=== PATIENT | male | born 1975 | race Hispanic/Latino ===

== ENCOUNTER 2017-10-15 06:53 | Inpatient (IN) | payer MEDICARE, OTHER ==
[2017-10-10 11:54] VITALS: BMI 38.0
[2017-10-15] MEDS ORDERED: Lidocaine 1% Inj (20ml) ONE (08:30)
[2017-10-15] MEDS ORDERED: Midazolam 2 MG/2 ML VIAL ONE ×3 (10:37→13:48)
[2017-10-15] MEDS ORDERED: Propofol 10 mg/ml Inj (20 ML) ONE ×2 (10:37→13:49)
[2017-10-15] MEDS ORDERED: Lactated Ringer's 1,000 ML IV ONE ×5 (10:47→16:00)
[2017-10-15] MEDS: Vancomycin 1 gm/D5W 200 ml 1 GM/200 ML BAG IVPB ONE ×2 (10:57→11:26)
[2017-10-15] MEDS ORDERED: HYDROmorphone 0.5 mg/0.5 ml ISec IVP PRN ×2 (12:52→15:07)
--- NOTE | 2017-10-15 12:52 | PCM.SURG1 ---
Surgeon's Initial Post Op Note - Surgeon's Notes Surgeon: Alison Senior Courtroom Clerk: Kunal PGY3 Type of Anesthesia: General Endo Pre-Operative Diagnosis: R leg varicose veins Operative Findings: varicose veins Post-Operative Diagnosis: same Operation Performed: R lower extremity vein ligation and stripping w. micro phlebectomy Specimen/Specimens Removed: veins Estimated Blood Loss: EBL {In ML}: 100 Blood Products Given: N/A Drains Used: No Drains Post-Op Condition: Good Date of Surgery/Procedure: 10/15/17 Time of Surgery/Procedure: 12:52
[2017-10-15] MEDS ORDERED: ceFAZolin IV 1 gm in Dextrose 0 GM/0 ML BAG IVPB ONE (13:50)
[2017-10-15] MEDS ORDERED: Lidocaine 2% w Epi 1:100,000 Inj IJ ONE (13:50)
--- NOTE | 2017-10-15 15:09 | PCM.SURG1 ---
Surgeon's Initial Post Op Note - Surgeon's Notes Surgeon: Alison Basket Braider: Kunal PGY3 Type of Anesthesia: IV Sedation, Local Pre-Operative Diagnosis: Post op wound bleed Operative Findings: Blood clots, bleeding saphenous vein Post-Operative Diagnosis: same Operation Performed: wound exploration w. ligation of bleeding saphenous Specimen/Specimens Removed: none Estimated Blood Loss: EBL {In ML}: 150 Blood Products Given: N/A Drains Used: No Drains Post-Op Condition: Good Date of Surgery/Procedure: 10/15/17 Time of Surgery/Procedure: 15:08
[2017-10-15] MEDS ORDERED: Acetaminophen-Codeine 300/30 mg Tab PO PRN (15:12)
[2017-10-15] MEDS ORDERED: Lactated Ringer's 500 ML IV ONE (15:13)
[2017-10-15 15:42] LABS: HEMATOCRIT 37.7 % (35.0-51.0); MEAN CORPUSCULAR HEMOGLOBIN 29.8 pg (27.0-31.0); MEAN PLATELET VOLUME 11.4 fL (7.2-11.7); RED CELL DISTRIBUTION WIDTH 13.7 % (11.5-14.5)
[2017-10-15 15:59] LABS: WHITE BLOOD COUNT 15.3 K/uL (4.8-10.8)
--- NOTE | 2017-10-15 18:38 | OP ---
PROCEDURE DATE: 10/15/2017 PREOPERATIVE DIAGNOSIS: Varicose veins and inflammation, right leg. PROCEDURE CARRIED OUT: Stripping and ligation of greater saphenous vein and microphlebectomy, right leg. SURGEON: Sánchez Rosas Jr., MD ACCELERATOR SYSTEMS DIRECTOR: None. ANESTHESIOLOGIST: . INDICATION: The patient is a middle-aged man with a history of emotional disorders, presents with large varices in right leg. The saphenofemoral incompetence is determined out of test. OPERATIVE FINDINGS: The saphenous vein was removed from the ankle to the groin. Numerous tributaries were marked on the skin and ligated and divided. Blood loss for the procedure was 50 mL. Wounds were closed with subcuticular closure and Steri-Strips, except from the groin. The patient tolerated the procedure well. Operation carried out was stripping and ligation of varicose veins of right leg and excision of greater saphenous vein with microphlebectomy. Sánchez Rosas Jr., MD
[2017-10-15] MEDS: Lactated Ringer's 1,000 ML IV SCH ×2 (20:00→21:24)
[2017-10-15] MEDS ORDERED: Divalproex 500 mg ER Tab PO SCH (22:00)
--- NOTE | 2017-10-15 22:14 | OP ---
PROCEDURE DATE: 10/15/2017 PREOPERATIVE DIAGNOSIS: Wound bleeding. POSTOPERATIVE DIAGNOSIS: Wound bleeding. PROCEDURE: Reexploration of groin wound status post vein ligation and stripping. SURGEON: Sánchez Rosas Jr., MD ENTRY LEVEL PARALEGAL: Dr. Syed. ANESTHESIOLOGIST: Mr. Dennis Lewis. INDICATIONS: The patient is a middle aged man, who today in the recovery room after vein stripping from the leg had bleeding from his groin to the extent that the bleeding and the amount of blood loss, I felt the patient should be reexplored. Initially, it appeared that the saphenous vein remnant had evulsed from the femoral vein, but this was not the situation; instead, it appeared that this was a situation where there was some loose tie on the saphenous vein or perhaps some bleeding behind it from another branch. This was suture ligated. The wound was inspected for a total of 45 minutes and then attempted to evaluate this, and there were no additional bleeding sites seen apart from this which was controlled with the use of suture ligation. We then irrigated the wound constantly with peroxide to reassure that there was no bleeding, and then we closed the wound again. Blood loss from procedure itself was 150 mL, but there was at least 500 mL blood loss prior to this. Sánchez Rosas Jr., MD
[2017-10-16 01:43] VITALS: RESP 20
[2017-10-16] MEDS: Lactated Ringer's 1,000 ML IV SCH (02:12)
[2017-10-16 09:08] LABS: MEAN CELL VOLUME 92.2 fL (80.0-94.0); MEAN CORPUSCULAR HEMOGLOBIN 30.6 pg (27.0-31.0); MEAN CORPUSCULAR HGB CONC 33.2 g/dL (33.0-37.0); MEAN PLATELET VOLUME 11.1 fL (7.2-11.7); RED CELL DISTRIBUTION WIDTH 13.5 % (11.5-14.5); WHITE BLOOD COUNT 9.9 K/uL (4.8-10.8)
[2017-10-16] MEDS ORDERED: Levothyroxine 150 MCG TAB PO SCH (10:00)
[2017-10-16] MEDS ORDERED: buPROPion 150 mg/24 Hours XL Tab PO SCH (10:00)
[2017-10-16 11:41] VITALS: O2SAT 96
--- NOTE | 2017-10-16 16:27 | CP.PCM.DIS ---
Provider - Provider Date of Admission: 10/15/17 15:09 Attending physician: Sánchez Rosas Jr, MD Time Spent in preparation of Discharge (in minutes): 20 Diagnosis - Discharge Diagnosis (1) S/P vein stripping Status: Resolved Hospital Course - Lab Results Lab Results: Most Recent Lab Values WBC 9.9 K/uL (4.8-10.8) 10/16/17 08:57 RBC 4.02 Mil/uL (4.40-5.90) L 10/16/17 08:57 Hgb 12.3 g/dL (12.0-18.0) 10/16/17 08:57 Hct 37.0 % (35.0-51.0) 10/16/17 08:57 MCV 92.2 fL (80.0-94.0) 10/16/17 08:57 MCH 30.6 pg (27.0-31.0) 10/16/17 08:57 MCHC 33.2 g/dL (33.0-37.0) 10/16/17 08:57 RDW 13.5 % (11.5-14.5) 10/16/17 08:57 Plt Count 136 K/uL (130-400) 10/16/17 08:57 MPV 11.1 fL (7.2-11.7) 10/16/17 08:57 Differential Comment 10/15/17 15:36 - Hospital Course Hospital Course: 42M presented to [facility] for vein stripping procedure. Had issues with bleeding post op so he was kept overnight for observation. He was able to be DC on POD#1. Discharge Exam - Head Exam Head Exam: ATRAUMATIC, NORMOCEPHALIC - Eye Exam Eye Exam: EOMI. absent: Scleral icterus - Respiratory Exam Respiratory Exam: NORMAL BREATHING PATTERN. absent: Respiratory Distress - GI/Abdominal Exam GI & Abdominal Exam: Soft. absent: Distended, Tenderness - Extremities Exam Additional comments: RLE dressing intact, bruising in thigh noted, normal. - Neurological Exam Neurological exam: Alert, Oriented x3 - Psychiatric Exam Psychiatric exam: Normal Affect, Normal Mood - Skin Skin Exam: Dry, Warm Discharge Plan - Follow Up Plan Condition: GOOD Disposition: HOME/ ROUTINE Instructions: Vein Stripping (DC) Additional Instructions: Walk for 5 minutes every 2 hours Call for pain uncontrolled by meds or fever more than 101 Follow up next week with Dr. Rosas Keep dressing on as long as possible, replace with bennett wrap once it is too loose. Regular Diet Ok to shower, keep dressing dry.
[2017-10-16 17:35] VITALS: BP 127/73; PULSE 98; TEMP 98.2
== END 2017-10-16 16:49 | disposition home or self-care (01) | DRG 263 ==
LOC: C.SDS 06:53 → C.9S 15:09 → C.6T 19:31
PROVIDERS: ADMIT Surgery Vascular Surgery; ATTEND Surgery Vascular Surgery
PROC: 06LP0ZZ Occlusion of Right Saphenous Vein, Open Approach (ICD-10-PCS; 2017-10-15)
PROC: 06DP0ZZ Extraction of Right Saphenous Vein, Open Approach (ICD-10-PCS; principal; 2017-10-15 09:00)
DX: I83.11 Varicose veins of right lower extremity with inflammation (principal); M96.830 Postprocedural hemorrhage of a musculoskeletal structure following a musculoskeletal system procedure; Y83.8 Other surgical procedures as the cause of abnormal reaction of the patient, or of later complication, without mention of misadventure at the time of the procedure; Y92.238 Other place in hospital as the place of occurrence of the external cause

== ENCOUNTER 2018-03-08 03:06 | Emergency (ER) | payer MEDICARE, OTHER ==
[2018-03-08 03:07] VITALS: BMI 38.0
[2018-03-08 03:22] VITALS: TEMP 98.4
[2018-03-08 04:14] LABS: SQUAMOUS EPITHIAL < 1 /hpf (0-5); URINE BILIRUBIN NEGATIVE (NEGATIVE); URINE BLOOD NEGATIVE (NEGATIVE); URINE CLARITY Clear (Clear); URINE COLOR Yellow (YELLOW); URINE GLUCOSE (UA) NORMAL (Normal); URINE LEUKOCYTE ESTERASE NEG Leu/uL (Negative); URINE PROTEIN NEGATIVE (NEGATIVE); URINE UROBILINOGEN NORMAL mg/dL (0.2-1.0)
[2018-03-08 04:14] LABS: HEMOGLOBIN 13.9 g/dL (12.0-18.0); WHITE BLOOD COUNT 8.6 K/uL (4.8-10.8)
[2018-03-08 04:20] LABS: BASO # 0.1 K/uL (0.0-0.2); BASO % 1.2 % (0.0-2.0); EOS # 0.3 K/uL (0.0-0.7); EOS % 3.5 % (0.0-4.0); LYMPH # 2.7 K/uL (1.0-4.3); LYMPH % 31.6 % (20.0-40.0); MEAN CELL VOLUME 90.3 fL (80.0-94.0); MEAN CORPUSCULAR HEMOGLOBIN 30.2 pg (27.0-31.0); MEAN CORPUSCULAR HGB CONC 33.4 g/dL (33.0-37.0); MEAN PLATELET VOLUME 10.9 fL (7.2-11.7); MONO # 0.8 K/uL (0.0-0.8); MONO % 9.7 % (0.0-10.0); NEUT # 4.6 K/uL (1.8-7.0); NRBC % 0.3 % (0.0-2.0); RBC 4.62 Mil/uL (4.40-5.90); RED CELL DISTRIBUTION WIDTH 14.5 % (11.5-14.5)
[2018-03-08 04:28] LABS: BARBITURATES, UR NEGATIVE (NEGATIVE); BENZODIAZEPINES, UR NEGATIVE (NEGATIVE); OPIATES, UR NEGATIVE (NEGATIVE); PHENCYCLIDINE, UR NEGATIVE (NEGATIVE)
[2018-03-08 04:29] LABS: ALB/GLOB RATIO 1.3 (1.0-2.1); ALT/SGPT 28 U/L (21-72); AST/SGOT 22 U/L (17-59); BLOOD UREA NITROGEN 20 mg/dL (9-20); CALCIUM 9.2 mg/dl (8.6-10.4); GFR AFRICAN-AMERICAN > 60; GFR NON-AFRICAN AMERICAN > 60
--- NOTE | 2018-03-08 04:53 | C.PDOC ---
History Of Present Illness 42 year old male presents to the ER with a complaint of feeling increasingly more paranoid recently. Patient has a Hx of paranoid schizophrenia, he has been on medications for 6 years and recently saw his psychiatrist, Dr. Sanchez, at [facility] who would not adjust his medications. Patient states he believes his symptoms will worsen if he does not stay. Denies suicidal ideation or homicidal ideation. Time Seen by Provider: 03/08/18 03:07 Chief Complaint (Nursing): Psychiatric Evaluation History Per: Patient History/Exam Limitations: no limitations Onset/Duration Of Symptoms: Days Current Symptoms Are (Timing): Still Present Suicide/Self Injury Attempted (Context): None Modifying Factor(s): None Associated Symptoms: Paranoia Involuntary Hold By: None Recent travel outside of the [place]: No Past Medical History Reviewed: Historical Data, Nursing Documentation, Vital Signs Vital Signs: Last Vital Signs Temp 98.4 F 03/08/18 03:18 Pulse 78 03/08/18 05:06 Resp 18 03/08/18 05:06 BP 135/72 03/08/18 05:06 Pulse Ox 95 03/08/18 05:06 - Medical History PMH: Anxiety, Bipolar Disorder, Depression, HTN, Hypothyroidism, Paranoia, Schizophrenia - [facility] Procedures EXTRACTION OF RIGHT GREATER SAPHENOUS VEIN, OPEN APPROACH (10/15/17) OCCLUSION OF RIGHT GREATER SAPHENOUS VEIN, OPEN APPROACH (10/15/17) Family History: States: Unknown Family Hx - Social History Hx Tobacco Use: No Hx Alcohol Use: No Hx Substance Use: No - Immunization History Hx Tetanus Toxoid Vaccination: No Hx Influenza Vaccination: No Hx Pneumococcal Vaccination: No Review Of Systems Except As Marked, All Systems Reviewed And Found Negative. Psych: Positive for: Other (Paranoia) Physical Exam - Physical Exam Appears: Non-toxic, No Acute Distress, Other (Calm, cooperative, bizarre affect) Skin: Normal Color, Warm, Dry Head: Atraumatic, Normacephalic Eye(s): bilateral: Normal Inspection Oral Mucosa: Moist Chest: Symmetrical, No Tenderness Cardiovascular: Rhythm Regular Respiratory: Normal Breath Sounds, No Rales, No Rhonchi, No Wheezing Gastrointestinal/Abdominal: Soft, No Tenderness Neurological/Psych: Oriented x3, Normal Speech ED Course And Treatment - Laboratory Results Result Diagrams: 03/08/18 04:05 03/08/18 04:05 O2 Sat by Pulse Oximetry: 98 (Room air) Pulse Ox Interpretation: Normal Progress Note: Blood work, UA, UDS ordered and reviewed. 4:50am - Patient seen by crisis counselor Gisselle, who discussed patient with correction officer supervisor psyciatrist Dr. Inman. Patient does not meet admission criteria, and has been cleared for discharge from psychiatric standpoint. Disposition Counseled Patient/Family Regarding: Studies Performed, Diagnosis, Need For Followup - Disposition Referrals: [place] [facility] [Outside] Disposition: HOME/ ROUTINE Disposition Time: 05:00 Condition: STABLE Additional Instructions: FOLLOW UP WITH YOUR PSYCHIATRIST WITHIN 1 WEEK RETURN TO ER IF SYMPTOMS WORSEN Forms: [facility] (Honduran), General Discharge Instructions Print Language: LATVIAN - POA Present On Arrival: None - Clinical Impression Clinical Impression: Paranoid schizophrenia - Scribe Statement The provider has reviewed the documentation as recorded by the Scribe Ramos Diggs All medical record entries made by the Scribe were at my direction and personally dictated by me. I have reviewed the chart and agree that the record accurately reflects my personal performance of the history, physical exam, medical decision making, and the department course for this patient. I have also personally directed, reviewed, and agree with the discharge instructions and disposition.
[2018-03-08 05:08] VITALS: BP 135/72; PULSE 78; RESP 18
[2018-03-08 05:17] VITALS: O2SAT 98
== END 2018-03-08 05:08 | disposition home or self-care (01) ==
LOC: C.ER 03:06
DX: F20.0 Paranoid schizophrenia (principal)
CPT/HCPCS: 80053; 81001; 85025; 99284; G0480

== ENCOUNTER 2018-04-14 12:33 | Emergency (ER) | payer MEDICARE, OTHER ==
[2018-04-14 12:34] VITALS: BMI 38.0
[2018-04-14 12:43] VITALS: RESP 18
--- NOTE | 2018-04-14 13:01 | C.PDOC ---
History Of Present Illness 42yo male with history of bipolar disorder, presents to ED for evaluation of "hot and cold spells" for the past 3 days. This has been making him and states he is having difficulty sleeping at night. He reports his medication was changed from risperidal to geodon last week. He also states he has been receiving testosterone injections by his urologist due to decreased sexual drive ; he reports the dosage was recently decreased. He denies any fever,sob, rash, pain, URI symptoms, dyruia, or hematuira. Denies chest pain or abdominal pain. He also denies any suicidal or homicidal ideation, denies any hallucinations as well. . PMD: Eyad Matute Time Seen by Provider: 04/14/18 12:48 Chief Complaint (Nursing): Medical Clearance History Per: Patient History/Exam Limitations: no limitations Onset/Duration Of Symptoms: Days (3) Current Symptoms Are (Timing): Still Present Additional History Per: Patient Past Medical History Reviewed: Historical Data, Nursing Documentation, Vital Signs Vital Signs: Last Vital Signs Temp 99.2 F 04/14/18 14:58 Pulse 70 04/14/18 14:58 Resp 18 04/14/18 14:58 BP 122/75 04/14/18 14:58 Pulse Ox 96 04/14/18 14:58 - Medical History PMH: Anxiety, Bipolar Disorder, Depression, HTN, Hypothyroidism, Paranoia, Schizophrenia Denies: Diabetes, Hepatitis, HIV, Chronic Kidney Disease, Seizures Surgical History: No Surg Hx - [facility] Procedures EXTRACTION OF RIGHT GREATER SAPHENOUS VEIN, OPEN APPROACH (10/15/17) OCCLUSION OF RIGHT GREATER SAPHENOUS VEIN, OPEN APPROACH (10/15/17) Family History: States: No Known Family Hx, Unknown Family Hx - Social History Hx Tobacco Use: No Hx Alcohol Use: No Hx Substance Use: No - Immunization History Hx Tetanus Toxoid Vaccination: No Hx Influenza Vaccination: No Hx Pneumococcal Vaccination: No Review Of Systems Except As Marked, All Systems Reviewed And Found Negative. Constitutional: Negative for: Fever, Chills ENT: Negative for: Nose Congestion, Throat Pain Respiratory: Negative for: Cough Genitourinary: Negative for: Dysuria, Hematuria Psych: Positive for: Anxiety. Negative for: Suicidal ideation, Other ( hallucinations) Physical Exam - Physical Exam Appears: Non-toxic, No Acute Distress, Other (anxious) Skin: Normal Color, Warm, Dry Head: Atraumatic, Normacephalic Eye(s): bilateral: Normal Inspection, EOMI Nose: Normal Oral Mucosa: Moist Neck: Normal ROM, Supple Chest: Symmetrical Cardiovascular: Rhythm Regular Respiratory: Normal Breath Sounds, No Wheezing Gastrointestinal/Abdominal: Normal Exam, Soft, No Tenderness Extremity: Normal ROM, No Deformity Neurological/Psych: Oriented x3, Normal Speech, Normal Motor, Normal Sensation ED Course And Treatment - Laboratory Results Result Diagrams: 04/14/18 13:31 04/14/18 13:31 O2 Sat by Pulse Oximetry: 95 (RA) Pulse Ox Interpretation: Normal Progress Note: Labs ordered. Crisis evaluation requested as well. Pt was seen and evaluated by crisis work marcela who notes pt is cleared to be discharged and can f/u outpt with appt on Sunday. Discussed with pt lab results and given copies to show PMD/psychiatrist. Instructed to return to ER if symptoms persist or worsen. Case discussed with Dr Roberts, agreed upon plan and discharge. Disposition - Disposition Disposition: HOME/ ROUTINE Disposition Time: 14:41 Condition: STABLE Additional Instructions: Follow up with your psychiatrist on Sunday for further evaluation. Inform them that your depakote level is < 10 and lithium is 0.3. Return to the emergency department at any time if symptoms persist or worsen. Instructions: Bipolar Disorder (DC) Forms: [facility] (Equatorial [place]inean) - Clinical Impression Clinical Impression: Anxiety, Bipolar 1 disorder - PA / DURABILITY TECHNICIAN / Resident Statement MD/DO has reviewed & agrees with the documentation as recorded. - Scribe Statement The provider has reviewed the documentation as recorded by the Scribe (Marla Venegas) Provider Attestation: All medical record entries made by the Scribe were at my direction and personally dictated by me. I have reviewed the chart and agree that the record accurately reflects my personal performance of the history, physical exam, medical decision making, and the department course for this patient. I have also personally directed, reviewed, and agree with the discharge instructions and disposition.
[2018-04-14 13:38] LABS: BASO # 0.1 K/uL (0.0-0.2); BASO % 0.8 % (0.0-2.0); EOS # 0.1 K/uL (0.0-0.7); EOS % 1.3 % (0.0-4.0); HEMOGLOBIN 15.6 g/dL (12.0-18.0); LYMPH # 2.1 K/uL (1.0-4.3); LYMPH % 21.6 % (20.0-40.0); MEAN CELL VOLUME 90.2 fL (80.0-94.0); MEAN CORPUSCULAR HEMOGLOBIN 30.4 pg (27.0-31.0); MEAN CORPUSCULAR HGB CONC 33.7 g/dL (33.0-37.0); MEAN PLATELET VOLUME 10.9 fL (7.2-11.7); MONO # 0.5 K/uL (0.0-0.8); MONO % 5.4 % (0.0-10.0); NEUT % 70.9 % (50.0-75.0); NRBC % 0.2 % (0.0-2.0); RBC 5.13 Mil/uL (4.40-5.90); RED CELL DISTRIBUTION WIDTH 13.8 % (11.5-14.5); WHITE BLOOD COUNT 9.9 K/uL (4.8-10.8)
[2018-04-14 13:39] LABS: URINE BILIRUBIN NEGATIVE (NEGATIVE); URINE BLOOD NEGATIVE (NEGATIVE); URINE CLARITY Clear (Clear); URINE COLOR Straw (YELLOW); URINE GLUCOSE (UA) NORMAL (Normal); URINE LEUKOCYTE ESTERASE NEG Leu/uL (Negative); URINE PROTEIN NEGATIVE (NEGATIVE); URINE UROBILINOGEN NORMAL mg/dL (0.2-1.0)
[2018-04-14 13:53] LABS: ALB/GLOB RATIO 1.4 (1.0-2.1); ALBUMIN 4.6 g/dL (3.5-5.0); ALT/SGPT 44 U/L (21-72); AST/SGOT 30 U/L (17-59); BLOOD UREA NITROGEN 14 mg/dL (9-20); CALCIUM 9.7 mg/dl (8.6-10.4); GFR AFRICAN-AMERICAN > 60; GFR NON-AFRICAN AMERICAN > 60
[2018-04-14 13:57] LABS: VALPROIC ACID < 10.0 ug/mL (50.0-100.0)
[2018-04-14 14:05] LABS: BARBITURATES, UR NEGATIVE (NEGATIVE); BENZODIAZEPINES, UR NEGATIVE (NEGATIVE); OPIATES, UR NEGATIVE (NEGATIVE); PHENCYCLIDINE, UR NEGATIVE (NEGATIVE)
[2018-04-14 14:25] LABS: TESTOSTERONE 598 ng/mL
[2018-04-14 15:14] VITALS: BP 122/75; PULSE 70; TEMP 99.2
[2018-04-14 22:02] VITALS: O2SAT 95
== END 2018-04-14 14:59 | disposition home or self-care (01) ==
LOC: C.ER 12:33
DX: F31.9 Bipolar disorder, unspecified (principal); F41.9 Anxiety disorder, unspecified; F20.9 Schizophrenia, unspecified; I10 Essential (primary) hypertension; E03.9 Hypothyroidism, unspecified
CPT/HCPCS: 80053; 80164; 80178; 81001; 84403; 84443; 85025; 99283; G0480

== ENCOUNTER 2018-04-25 14:53 | Inpatient (IN) | payer MEDICARE, MEDICAID ==
[2018-04-25 15:14] VITALS: BMI 37.3
--- NOTE | 2018-04-25 15:45 | C.PDOC ---
History Of Present Illness 42 y/o male presents to ED with c/o insomnia for 3 weeks, seen by psychiatrist and psychologist. Patient was prescribed Restoril and states he stopped medication secondary to becoming suicidal when taking it. Patient states he has taken Benadryl with no relief and denies any other physical complaints at this time. Time Seen by Provider: 04/25/18 15:34 Chief Complaint (Nursing): Medical Clearance History Per: Patient History/Exam Limitations: no limitations Onset/Duration Of Symptoms: Days Current Symptoms Are (Timing): Still Present Past Medical History Reviewed: Historical Data, Nursing Documentation, Vital Signs Vital Signs: Last Vital Signs Temp 98.7 F 04/25/18 16:37 Pulse 85 04/25/18 16:37 Resp 16 04/25/18 16:37 BP 131/84 04/25/18 16:37 Pulse Ox 97 04/25/18 18:23 - Medical History PMH: Anxiety, Bipolar Disorder, Depression, HTN, Hypothyroidism, Paranoia, Schizophrenia Surgical History: No Surg Hx - [facility] Procedures EXTRACTION OF RIGHT GREATER SAPHENOUS VEIN, OPEN APPROACH (10/15/17) OCCLUSION OF RIGHT GREATER SAPHENOUS VEIN, OPEN APPROACH (10/15/17) Family History: States: No Known Family Hx - Social History Hx Tobacco Use: No Hx Alcohol Use: No Hx Substance Use: No - Immunization History Hx Tetanus Toxoid Vaccination: No Hx Influenza Vaccination: No Hx Pneumococcal Vaccination: No Review Of Systems Constitutional: Negative for: Fever, Chills Cardiovascular: Negative for: Chest Pain Respiratory: Negative for: Shortness of Breath Gastrointestinal: Negative for: Nausea, Vomiting Skin: Negative for: Rash Psych: Negative for: Anxiety, Suicidal ideation, Withdrawal Physical Exam - Physical Exam Appears: Non-toxic, No Acute Distress, Other (Morbidly obese, Bizarre effect) Skin: Warm, Dry, No Rash Head: Atraumatic, Normacephalic Eye(s): bilateral: Normal Inspection Oral Mucosa: Moist Neck: Normal ROM, Supple Cardiovascular: Rhythm Regular Respiratory: Normal Breath Sounds, No Rales, No Rhonchi, No Wheezing Gastrointestinal/Abdominal: Soft, No Tenderness, No Guarding, No Rebound Neurological/Psych: Oriented x3, Normal Speech, Normal Cognition ED Course And Treatment - Laboratory Results Result Diagrams: 04/25/18 18:19 04/25/18 18:19 Lab Interpretation: Normal (ua neg) O2 Sat by Pulse Oximetry: 97 (RA) Pulse Ox Interpretation: Normal Progress Note: 1644: extensive d/w Crisis workers and arranging visits for this pt. pt unsatisfied that his next appt set for 04/29. Pt wants to be inpatient for insomnia. Denies SI/HI. d/w Crisis to reccomend psych eval and will consider for ADM Reevaluation Time: 19:13 Reassessment Condition: Improved - Physician Consult Information Outcome Of Conversation: 1899: d/w Crisis, ok to admit to Psych Medical Decision Making Medical Decision Making: insomnia x 4 weeks, no SI/HI recently seen by his psychiatrist and psychologist Arranged to have pt call for sooner appt as he desires. no new psych meds Rx'd here. 1699: pending workup for inpt eval 1899: adm for paranoid schizophrenia Disposition Doctor Will See Patient In The: Hospital Counseled Patient/Family Regarding: Studies Performed, Diagnosis - Disposition Referrals: [facility] [Outside] [facility] [Outside] [facility] [Outside] Eyad Matute MD [Staff Provider] - Disposition: HOME/ ROUTINE Disposition Time: 19:14 Condition: GOOD Additional Instructions: call your psychiatrist to make sooner appointment with his office. Continue same meds HOLD Restoril Instructions: Insomnia Forms: [facility] (Maltese) - Clinical Impression Clinical Impression: Paranoid schizophrenia, Bipolar 1 disorder, Insomnia - Scribe Statement The provider has reviewed the documentation as recorded by the Yogi Sandoval All medical record entries made by the Ashwinibgeorge were at my direction and personally dictated by me. I have reviewed the chart and agree that the record accurately reflects my personal performance of the history, physical exam, medical decision making, and the department course for this patient. I have also personally directed, reviewed, and agree with the discharge instructions and disposition.
[2018-04-25 17:51] LABS: URINE BILIRUBIN NEGATIVE (NEGATIVE); URINE BLOOD NEGATIVE (NEGATIVE); URINE CLARITY Clear (Clear); URINE COLOR Yellow (YELLOW); URINE GLUCOSE (UA) NORMAL (Normal); URINE LEUKOCYTE ESTERASE NEG Leu/uL (Negative); URINE PROTEIN NEGATIVE (NEGATIVE); URINE UROBILINOGEN NORMAL mg/dL (0.2-1.0)
[2018-04-25 17:59] LABS: BARBITURATES, UR NEGATIVE (NEGATIVE); BENZODIAZEPINES, UR NEGATIVE (NEGATIVE); OPIATES, UR NEGATIVE (NEGATIVE); PHENCYCLIDINE, UR NEGATIVE (NEGATIVE)
[2018-04-25 18:22] LABS: BASO # 0.1 K/uL (0.0-0.2); BASO % 0.6 % (0.0-2.0); EOS # 0.2 K/uL (0.0-0.7); EOS % 2.1 % (0.0-4.0); LYMPH # 2.5 K/uL (1.0-4.3); LYMPH % 23.4 % (20.0-40.0); MEAN CELL VOLUME 91.8 fL (80.0-94.0); MEAN CORPUSCULAR HGB CONC 33.8 g/dL (33.0-37.0); MEAN PLATELET VOLUME 10.6 fL (7.2-11.7); MONO # 0.7 K/uL (0.0-0.8); NEUT # 7.1 K/uL (1.8-7.0); NEUT % 66.9 % (50.0-75.0); NRBC % 0.2 % (0.0-2.0); RBC 5.15 Mil/uL (4.40-5.90); WHITE BLOOD COUNT 10.7 K/uL (4.8-10.8)
[2018-04-25 18:36] LABS: ALB/GLOB RATIO 1.2 (1.0-2.1); ALBUMIN 4.2 g/dL (3.5-5.0); ALT/SGPT 37 U/L (21-72); AST/SGOT 26 U/L (17-59); BLOOD UREA NITROGEN 19 mg/dL (9-20); CALCIUM 9.4 mg/dl (8.6-10.4); GFR AFRICAN-AMERICAN > 60; GFR NON-AFRICAN AMERICAN > 60
--- NOTE | 2018-04-25 21:33 | PCM.BM ---
<Monty Felder - Last Filed: 04/25/18 21:30> Treatment Plan Problems - Problems identified on initial assessmt Insomnia Date Initiated: 04/25/18 Time Initiated: 21:31 Assessment reference: NA Status: Active Depression Date Initiated: 04/25/18 Time Initiated: 21:32 Assessment reference: NA Status: Active Treatment assets and liabiliti Patient Assests: adapts well, cooperative, motivated, ADL independent, negotiates basic needs, financial stabiity Patient Liabilities: substance abuse (Hx of Alcohol and drug abuse), medical problems (Schizophrenia) - Milieu Protocol Maintain good personal hygiene: daily Encourage regular showers, daily Remind patient to perform daily oral care, every shift Assist patient to perform ADL's Conduct patient checks and document Observation sheet: Q15 minutes (For safety) Maintain personal safety: every shift Educate patient to report safety concerns to staff, every shift Monitor environment for contraband/sharps Medication safety: Monitor for expected outcome, potential side effects: every shift, Assess barriers to learning: every shift, Assess readiness for medication education: every shift <Nataly Lincoln - Last Filed: 04/29/18 11:38> - Diagnosis (1) Schizoaffective disorder Status: Acute Interventions: 04/29/18 11:39 * Assess/adjust medications daily and /or as needed * See patient on an individual basis 7x/week to assess status of hallucinations * Discuss risks, benefits, side effects and alternatives of medications * <Elaine Urrutia - Last Filed: 04/29/18 16:29> Family Contact Family involvement: Patient does not wish Family/SO involvement Family contact: Patient declines to allow family contact at present - Goals for Treatment Patient goals for treatment: "I want to go to [facility] [place] [facility]." Discharge/Continuing Care - Education Needs Education Needs: Patient Medication, Patient Diagnosis/Disease Process, Patient Coping Skills, Patient Placement options, Patient Community resources - Discharge Discharge Criteria: Free of Suicidal thoughts, Free of paranoid thoughts, Normal sleep pattern, Ability to care for self, Reduction of target symptoms Discharge to:: Home, With Family - Treatment Team Participation Discussed with Family/SO: No Was Patient/Family/SO present at Treatment Team Meeting: Yes
[2018-04-25] MEDS ORDERED: Divalproex 500 mg ER Tab PO ONE (21:56)
[2018-04-25] MEDS ORDERED: Lithium Carbonate ER Tab 450 MG PO SCH (22:00)
[2018-04-26] MEDS ORDERED: Levothyroxine 50 MCG TAB PO SCH (06:30)
--- NOTE | 2018-04-26 09:45 | PCM.PSYCH ---
Initial Psychiatric Evaluation - Initial Psychiatric Evaluation Type of Admission: Voluntary Legal Status: Capacity Chief Complaint (in patient's own words): I haven't slept for more than a week.' History of Present Illness and Precipitating Events: Pt is a 42 year old single male, last discharged from 7 years ago, came to the ED with irritable and agitated mood and racing of thoughts. Pt reports history of multiple inpatient psychiatric hospitalizations, last discharged from 7 years ago. Currently he is following up with Dr. Matute at [facility]. As per the patient he has not slept for more than 1 month. Pt reports he is a pt at [facility] with Dr. Matute and had recently adjusted his medication x 2 months ago. Pt feels its the geodon that has caused him to not be able to sleep. Pt reports he might get 1 or 2 hours of sleep a night but not until about 5am. Pt reports he attempted to speak with Dr. Matute and he was sent to the hospital for stabilization. He reports poor sleep, irritable and agitated mood, racing of thoughts and flight of ideas. He also reports poor concatenation, and poor focus. Pt stopped this medication 2 night ago. Pt reports he took geodon 40mg this morning at 3am and also took depakote 250mg this morning at 2:50am. Pt reports he is trying to be his "own doctor" because no one else will help him. He reports at times depressed mood and feelings of hopelessness and helplessness, however he denies any suicidal ideation or homicidal ideation. Pt states he has a hx of hearing voices 2 months ago. Pt states he believed that his neighbors were talking about him. But denies any recent auditory or visual hallucinations. he reports history of suicidal ideation in the past, OD on cocaine x 7 years ago. He also reports history of cocaine and alcohol abuse in the past, However he is sober for more than x 6 years. PMH: Hypothyroidism Current Medications: Active Medications Generic Name Dose Route Start Last Admin Trade Name Freq PRN Reason Stop Dose Admin Bupropion HCl 300 mg 04/26/18 10:00 Wellbutrin Xl PO DAILY JASON Hydroxyzine HCl 25 mg 04/25/18 20:07 Atarax PO Q6 PRN Anxiety Levothyroxine Sodium 50 mcg 04/26/18 06:30 Synthroid PO DAILY@0630 JASON Trazodone HCl 50 mg 04/25/18 20:08 Desyrel PO HS PRN Insomnia Ziprasidone 20 mg 04/25/18 22:00 04/25/18 22:08 Geodon Cap PO Not Given [facility] Past Psychiatric History - Past Psychiatric History Previous Treatment History: Inpatient Pertinent Medical Hx (Current Medical&Sleep Prob, Allergies): Allergies Allergy/AdvReac Type Severity Reaction Status Date / Time Penicillins Allergy Verified 04/25/18 15:11 Bupropion HCl [Bupropion Xl] 150 mg PO DAILY 07/12/16 Divalproex [Depakote ER] 250 mg PO HS 07/12/16 Levothyroxine [Synthroid] 150 mcg PO DAILY 07/12/16 [place] Carbonate [[place] Carbonate 300MG] 300 mg PO TID 07/12/16 Bupropion HCl [Wellbutrin XL] 300 mg PO HS 04/14/18 Ziprasidone HCl [Geodon] 40 mg PO DAILY 04/14/18 Testosterone Cypionate [Novaplus Depo-Testosterone] 2 mg IM Q2W 04/25/18 Review of Systems - Review of Systems All systems: reviewed and no additional remarkable complaints except Mental Status Examination - Personal Presentation Personal Presentation: Looks stated age - Affect Affect: Broad - Motor Activity Motor Activity: Psychomotor Agitation - Reliability in Providing Information Reliability in Providing Information: Poor, due to alteration in thoughts - Speech Speech: Organized - Mood Mood: Depressed, Anxious - Formal Thought Process Formal Thought Process: Loosening of associations, Flight of ideas, Circumstantial - Obsessions/Compulsions Obsessions: No Compulsions: No - Cognitive Functions Orientation: Person, Place, Situation, Time Sensorium: Alert Attention/Concentration: Attentive Abstract Thinking: [place] Estimate of Intelligence: Below average Judgement: Imparied, as evidence by: Poor judgement, Imparied, as evidence by: Lack of insight into illness - Risk Risk: Diminished functioning - Strength & Assets Inventory Strength & Assets Inventory: Family support DSM 5 DX - DSM 5 DSM 5 Diagnosis: Schizoaffective disorder bipolar type - Recommended/Plan of Treatment Treatment Recommendations and Plan of Treatment: Schizoaffective disorder bipolar type CBT Psychoeducation Supportive therapy, group therapy, individual therapy Wellbutrin 150 mg PO Daily Wellbutrin 300 mg PO QPM Depakote 250 mg by mouth Q daily Depakote 500 mg by mouth QHS Trazodone 50 mg by mouth daily at bedtime [place] 300 mg PO TID Geodon 20 mg PO Q2pm Hypothyroidism: Levothyroxine 150 mncg Daily
[2018-04-26] MEDS ORDERED: buPROPion 150 mg/24 Hours XL Tab PO SCH (10:00)
[2018-04-26] MEDS ORDERED: Divalproex 500 mg ER Tab PO SCH (10:00)
[2018-04-26] MEDS: Divalproex 250 mg DR Tab PO SCH (11:23)
[2018-04-26] MEDS: buPROPion 150 mg/24 Hours XL Tab PO SCH ×2 (11:24→17:39)
[2018-04-26] MEDS: Divalproex 500 mg DR Tab PO SCH (21:26)
[2018-04-27] MEDS: Levothyroxine 150 MCG TAB PO SCH (05:43)
[2018-04-27] MEDS: buPROPion 150 mg/24 Hours XL Tab PO SCH ×2 (09:31→17:09)
[2018-04-27] MEDS: Divalproex 250 mg DR Tab PO SCH (09:32)
--- NOTE | 2018-04-27 12:22 | PCM.PYCHPN ---
Psychiatric Progress Note - Psychiatric Progress Note Patient seen today, length of contact: 15 min Patient Chief Complaint: I'm feeling a little better Problems Identified/Issues Discussed: Patient seen and evaluated, chart reviewed and discussed with the nurse. Patient reports irritability and agitation. He remained isolated and withdrawn. He still reports racing thoughts and poor concentration. However he denies any auditory or visual hallucinations. He is taking medications and denies any side effects Symptoms are improving but he needs more time for stabilization. Supportive therapy and psychoeducation were given. Medication Change: Yes Medical Record Reviewed: Yes Mental Status Examination - Cognitive Function Orientation: Person, Place, Situation, Time Memory: Intact Attention: WNL Concentration: Poor Association: Loose Fund of Knowledge: WNL - Mood Mood: Depressed, Anxious - Affect Affect: Broad - Speech Speech: Soft - Formal Thought Process Formal Thought Process: Loosening of associations, Flight of ideas, Circumstantial - Suicidal Ideation Suicidal Ideation: No - Homicidal Ideation Homicidal Ideation: No Goal/Treatment Plan - Goal/Treatment Plan Need for Continued Stay: Severe depression anxiety, Severe functional impairment Progress Toward Problem(s) and Goals/Treatment Plan: Schizoaffective disorder bipolar type CBT Psychoeducation Supportive therapy, group therapy, individual therapy Wellbutrin 150 mg PO Daily Wellbutrin 300 mg PO QPM Depakote 250 mg by mouth Q daily Depakote 500 mg by mouth QHS Trazodone 50 mg by mouth daily at bedtime [place] 300 mg PO TID Geodon 20 mg PO Q2pm Hypothyroidism: Levothyroxine 150 mncg Daily - Smoking Cessation Smoking Cessation Initiated: No
[2018-04-27] MEDS: Divalproex 500 mg DR Tab PO SCH (21:41)
[2018-04-28] MEDS: Levothyroxine 150 MCG TAB PO SCH (05:56)
[2018-04-28] MEDS: buPROPion 150 mg/24 Hours XL Tab PO SCH (09:04)
[2018-04-28] MEDS: Divalproex 250 mg DR Tab PO SCH (09:05)
--- NOTE | 2018-04-28 15:24 | PCM.PYCHPN ---
Psychiatric Progress Note - Psychiatric Progress Note Patient seen today, length of contact: 15 min Patient Chief Complaint: I'm feeling a little better Problems Identified/Issues Discussed: Patient seen and evaluated, chart reviewed and discussed with the nurse. Patient reports some improvement in the irritability and agitation, however he still reports racing thoughts and poor concentration. He remained isolated and withdrawn. He denies any auditory or visual hallucinations. He is taking medications and denies any side effects Symptoms are improving but he needs more time for stabilization. Supportive therapy and psychoeducation were given. Medication Change: Yes (Change Wellbutrin) Medical Record Reviewed: Yes Mental Status Examination - Cognitive Function Orientation: Person, Place, Situation, Time Memory: Intact Attention: WNL Concentration: Poor Association: Loose Fund of Knowledge: WNL - Mood Mood: Depressed, Anxious - Affect Affect: Broad - Speech Speech: Soft - Formal Thought Process Formal Thought Process: Loosening of associations, Flight of ideas, Circumstantial - Suicidal Ideation Suicidal Ideation: No - Homicidal Ideation Homicidal Ideation: No Goal/Treatment Plan - Goal/Treatment Plan Need for Continued Stay: Severe depression anxiety, Severe functional impairment Progress Toward Problem(s) and Goals/Treatment Plan: Schizoaffective disorder bipolar type CBT Psychoeducation Supportive therapy, group therapy, individual therapy Wellbutrin 150 mg PO Daily Wellbutrin 300 mg PO daily Depakote 250 mg by mouth Q daily Depakote 500 mg by mouth QHS Trazodone 50 mg by mouth daily at bedtime Seroquel 100 mg by mouth daily at bedtime [place] 300 mg PO TID DC Geodon 20 mg PO Q2pm Hypothyroidism: Levothyroxine 150 mncg Daily
[2018-04-28] MEDS ORDERED: buPROPion 150 mg/24 Hours XL Tab PO SCH (16:45)
[2018-04-28] MEDS ORDERED: buPROPion 150 mg/24 Hours XL Tab PO ONE (17:45)
[2018-04-28] MEDS: Divalproex 500 mg DR Tab PO SCH (22:14)
[2018-04-29] MEDS: Levothyroxine 150 MCG TAB PO SCH (05:58)
[2018-04-29] MEDS: Divalproex 250 mg DR Tab PO SCH (09:07)
[2018-04-29] MEDS ORDERED: buPROPion 150 mg/24 Hours XL Tab PO SCH (10:00)
[2018-04-29] MEDS: Divalproex 500 mg DR Tab PO SCH (21:57)
[2018-04-30] MEDS: Levothyroxine 150 MCG TAB PO SCH (05:50)
[2018-04-30] MEDS: buPROPion 150 mg/24 Hours XL Tab PO SCH (09:40)
--- NOTE | 2018-04-30 10:03 | PCM.PYCHPN ---
Psychiatric Progress Note - Psychiatric Progress Note Patient seen today, length of contact: 15 min Patient Chief Complaint: I'm feeling a little better Problems Identified/Issues Discussed: Patient seen and evaluated, chart reviewed and discussed with the nurse. Patient reports some improvement in the irritability and agitation. However he still reports racing thoughts and poor concentration. He reports his mood has improved a bit compared to the past few days. Denies suicidal ideations. He remained isolated and withdrawn. He denies any auditory or visual hallucinations. He is taking medications and denies any side effects Symptoms are improving but he needs more time for stabilization. Supportive therapy and psychoeducation were given. After care discussed. Medication Change: Yes (d/c seroquel, start depakote ) Medical Record Reviewed: Yes Mental Status Examination - Cognitive Function Orientation: Person, Place, Situation, Time Memory: Intact Attention: WNL Concentration: Poor Association: Loose Fund of Knowledge: WNL - Mood Mood: Depressed, Anxious - Affect Affect: Broad - Speech Speech: Soft - Formal Thought Process Formal Thought Process: Loosening of associations, Flight of ideas, Circumstantial - Suicidal Ideation Suicidal Ideation: No - Homicidal Ideation Homicidal Ideation: No Goal/Treatment Plan - Goal/Treatment Plan Need for Continued Stay: Severe depression anxiety, Severe functional impairment Progress Toward Problem(s) and Goals/Treatment Plan: Schizoaffective disorder bipolar type CBT Psychoeducation Supportive therapy, group therapy, individual therapy reduce Wellbutrin 300 mg PO daily Depakote 500 mg by mouth Q daily Depakote 500 mg by mouth QHS Trazodone 100 mg by mouth daily at bedtime [place] Seroquel 100 mg by mouth daily at bedtime DC [place] 300 mg PO TID Start Haldol 10 mg PO QHS Start 1 mg PO Q HS Hypothyroidism: Levothyroxine 150 mncg Daily
[2018-04-30] MEDS: Divalproex 250 mg DR Tab PO SCH (12:10)
[2018-04-30] MEDS: Divalproex 500 mg DR Tab PO SCH (21:15)
[2018-05-01] MEDS: Levothyroxine 150 MCG TAB PO SCH (05:49)
[2018-05-01] MEDS: Divalproex 250 mg DR Tab PO SCH (09:49)
[2018-05-01] MEDS: buPROPion 150 mg/24 Hours XL Tab PO SCH (09:49)
[2018-05-01] MEDS: Divalproex 500 mg DR Tab PO SCH (21:53)
[2018-05-02] MEDS: Levothyroxine 150 MCG TAB PO SCH (06:10)
--- NOTE | 2018-05-02 10:10 | PCM.PYCHPN ---
Psychiatric Progress Note - Psychiatric Progress Note Patient seen today, length of contact: 15 min Patient Chief Complaint: I'm feeling a little better Problems Identified/Issues Discussed: Patient seen and evaluated, chart reviewed and discussed with the nurse. Today patient reports improvement in his mood and anxiety. He is still reporting problems with the sleep. He appears more organized than before but he remained preoccupied with anxiety and medications. He remained isolated and withdrawn. He is taking medications and denies any side effects Symptoms are improving but he needs more time for stabilization. Supportive therapy and psychoeducation were given. After care discussed. Medication Change: Yes (Increase trazodone) Medical Record Reviewed: Yes Mental Status Examination - Cognitive Function Orientation: Person, Place, Situation, Time Memory: Intact Attention: WNL Concentration: WNL Association: Loose Fund of Knowledge: WNL - Mood Mood: Depressed, Anxious - Affect Affect: Broad - Speech Speech: Soft - Formal Thought Process Formal Thought Process: Loosening of associations - Suicidal Ideation Suicidal Ideation: No - Homicidal Ideation Homicidal Ideation: No Goal/Treatment Plan - Goal/Treatment Plan Need for Continued Stay: Severe depression anxiety, Severe functional impairment Progress Toward Problem(s) and Goals/Treatment Plan: Schizoaffective disorder bipolar type CBT Psychoeducation Supportive therapy, group therapy, individual therapy Wellbutrin 300 mg PO daily Depakote 500 mg by mouth Q daily Depakote 500 mg by mouth QHS Trazodone 200 mg by mouth daily at bedtime Haldol 10 mg PO QHS Cogentin 1 mg PO Q HS Valium 10 mg PO QHS Hypothyroidism: Levothyroxine 150 mcg Daily - Smoking Cessation Smoking Cessation Initiated: No
[2018-05-02] MEDS: buPROPion 150 mg/24 Hours XL Tab PO SCH (10:16)
[2018-05-02] MEDS: Divalproex 250 mg DR Tab PO SCH (10:17)
[2018-05-02] MEDS: Divalproex 500 mg DR Tab PO SCH (21:13)
[2018-05-03] MEDS: Levothyroxine 150 MCG TAB PO SCH (06:06)
[2018-05-03] MEDS: Divalproex 250 mg DR Tab PO SCH (09:22)
[2018-05-03] MEDS: buPROPion 150 mg/24 Hours XL Tab PO SCH (09:23)
--- NOTE | 2018-05-03 10:00 | PCM.PYCHPN ---
Psychiatric Progress Note - Psychiatric Progress Note Patient seen today, length of contact: 15 min Patient Chief Complaint: I'm feeling depressed today Problems Identified/Issues Discussed: Patient seen and evaluated, chart reviewed and discussed with the nurse. Today patient reports depressed mood, and asking to increase Wellbutrin. He is still reporting problems with the sleep. Reports someone improvement in the irritability and agitation. He appears more organized than before but he remained preoccupied with anxiety and medications. He remained isolated and withdrawn. He is taking medications and denies any side effects Symptoms are improving but he needs more time for stabilization. Supportive therapy and psychoeducation were given. After care discussed. Medication Change: Yes (Increase Wellbutrin) Medical Record Reviewed: Yes Mental Status Examination - Cognitive Function Orientation: Person, Place, Situation, Time Memory: Intact Attention: WNL Concentration: WNL Association: Loose Fund of Knowledge: WNL - Mood Mood: Depressed, Anxious - Affect Affect: Broad - Speech Speech: Soft - Formal Thought Process Formal Thought Process: No Impairment - Suicidal Ideation Suicidal Ideation: No - Homicidal Ideation Homicidal Ideation: No Goal/Treatment Plan - Goal/Treatment Plan Need for Continued Stay: Severe depression anxiety, Severe functional impairment Progress Toward Problem(s) and Goals/Treatment Plan: Schizoaffective disorder bipolar type CBT Psychoeducation Supportive therapy, group therapy, individual therapy Wellbutrin SR 450 mg PO daily Depakote 500 mg by mouth Q daily Depakote 500 mg by mouth QHS Trazodone 200 mg by mouth daily at bedtime Haldol 10 mg PO QHS Cogentin 1 mg PO Q HS Valium 10 mg PO QHS Hypothyroidism: Levothyroxine 150 mcg Daily
[2018-05-03] MEDS ORDERED: buPROPion SR 150 MG TABLET PO ONE (12:00)
[2018-05-03] MEDS ORDERED: buPROPion 150 mg/24 Hours XL Tab PO ONE (12:30)
[2018-05-03] MEDS: Divalproex 500 mg DR Tab PO SCH (21:12)
[2018-05-04] MEDS: buPROPion 150 mg/24 Hours XL Tab PO SCH (06:17)
[2018-05-04] MEDS: Levothyroxine 150 MCG TAB PO SCH (06:17)
[2018-05-04] MEDS: Divalproex 250 mg DR Tab PO SCH (09:08)
[2018-05-04] MEDS ORDERED: buPROPion 150 mg/24 Hours XL Tab PO SCH (10:00)
--- NOTE | 2018-05-04 15:54 | PCM.PYCHPN ---
Psychiatric Progress Note - Psychiatric Progress Note Patient seen today, length of contact: 15 min Patient Chief Complaint: "I want to take wellbutrin and depakote at 6am" Problems Identified/Issues Discussed: Patient seen and evaluated, chart reviewed and case was discussed with the nurse. Patient reports improvement in the irritability and insomnia. However he still reports racing thoughts and poor concentration. He reports improvement in his suicidal ideations. He denied intent or plan He remained isolated and withdrawn. He denies any auditory or visual hallucinations. He is taking medications and denies any side effects Symptoms are improving but he needs more time for stabilization. Supportive therapy and psychoeducation were given. After care discussed. DSM 5 Symptoms Update: Bipolar I disorder Medication Change: Yes (d/c seroquel, start depakote ) Medical Record Reviewed: Yes Mental Status Examination - Cognitive Function Orientation: Person, Place, Situation, Time Memory: Intact Attention: WNL Concentration: WNL Association: Loose Fund of Knowledge: WNL Decription of patient's judgement and insights: Good/good - Mood Mood: Depressed, Anxious - Affect Affect: Broad - Speech Speech: Soft - Formal Thought Process Formal Thought Process: Loosening of associations, Flight of ideas, Circumstantial - Suicidal Ideation Suicidal Ideation: No Plan: denied - Homicidal Ideation Homicidal Ideation: No Plan: denied Goal/Treatment Plan - Goal/Treatment Plan Need for Continued Stay: Severe depression anxiety, Discharge may exacerbated symptoms, Severe functional impairment Progress Toward Problem(s) and Goals/Treatment Plan: Continue current treatment and management. Therapy in milieu Psychoeducation provided Estimated Date of D/C: 05/07/18 - Smoking Cessation Smoking Cessation Initiated: Yes
[2018-05-04] MEDS: Divalproex 500 mg DR Tab PO SCH (21:10)
[2018-05-05] MEDS: buPROPion 150 mg/24 Hours XL Tab PO SCH (06:47)
[2018-05-05] MEDS: Divalproex 500 mg DR Tab PO SCH ×2 (06:48→21:08)
[2018-05-05] MEDS: Levothyroxine 150 MCG TAB PO SCH (06:48)
[2018-05-05 07:06] VITALS: TEMP 97.9
--- NOTE | 2018-05-05 17:54 | PCM.PYCHPN ---
Psychiatric Progress Note - Psychiatric Progress Note Patient seen today, length of contact: 15 min Patient Chief Complaint: "I'm feeling better" Problems Identified/Issues Discussed: Patient seen and evaluated, chart reviewed and case was discussed with the nurse. Patient reports improvement in his mood. He reported improvement in his racing thoughts and focus. He reports improvement in his suicidal ideations. He denied intent or plan. He denies any auditory or visual hallucinations. He is taking medications and denies any side effects Symptoms are improving but he needs more time for stabilization. Supportive therapy and psychoeducation were given. After care discussed. DSM 5 Symptoms Update: Schizoaffective disorder, Bipolar disorder Medication Change: No Medical Record Reviewed: Yes Mental Status Examination - Cognitive Function Orientation: Person, Place, Situation, Time Memory: Intact Attention: WNL Concentration: WNL Association: Loose Fund of Knowledge: WNL Decription of patient's judgement and insights: Good/good - Mood Mood: Depressed, Anxious - Affect Affect: Constricted - Speech Speech: Appropriate, Soft - Formal Thought Process Formal Thought Process: Loosening of associations, Circumstantial - Suicidal Ideation Suicidal Ideation: No Plan: denied - Homicidal Ideation Homicidal Ideation: No Plan: denied Goal/Treatment Plan - Goal/Treatment Plan Need for Continued Stay: Severe depression anxiety, Discharge may exacerbated symptoms, Severe functional impairment Progress Toward Problem(s) and Goals/Treatment Plan: Continue current treatment and management. Therapy in milieu Psychoeducation provided Estimated Date of D/C: 05/07/18
[2018-05-06] MEDS: Divalproex 500 mg DR Tab PO SCH (06:37)
[2018-05-06] MEDS: Levothyroxine 150 MCG TAB PO SCH (06:37)
[2018-05-06] MEDS: buPROPion 150 mg/24 Hours XL Tab PO SCH (06:37)
[2018-05-06 07:03] VITALS: BP 115/72; PULSE 90; RESP 20; O2SAT 98
--- NOTE | 2018-05-06 10:22 | PCM.PYCHDC ---
Mental Status Examination - Mental Status Examination Orientation: Person, Place, Situation, Time Memory: Intact Mood: Neutral Affect: Constricted Speech: Soft Attention: WNL Concentration: WNL Association: WNL Fund of Knowledge: WNL Formal Thought Process: No Impairment Description of patient's judgement and insight: GOOD, FAIR Psychotic Thoughts and Behaviors: denies any AVH Suicidal Ideation: No Current Homicidal Ideation?: No Discharge Summary - Discharge Note Reason for Hospitalization: Pt is a 42 year old single male, last discharged from 7 years ago, came to the ED with irritable and agitated mood and racing of thoughts. Pt reports history of multiple inpatient psychiatric hospitalizations, last discharged from 7 years ago. Currently he is following up with Dr. Matute at [facility]. As per the patient he has not slept for more than 1 month. Pt reports he is a pt at [facility] with Dr. Matute and had recently adjusted his medication x 2 months ago. Pt feels its the geodon that has caused him to not be able to sleep. Pt reports he might get 1 or 2 hours of sleep a night but not until about 5am. Pt reports he attempted to speak with Dr. Matute and he was sent to the hospital for stabilization. He reports poor sleep, irritable and agitated mood, racing of thoughts and flight of ideas. He also reports poor concatenation, and poor focus. Pt stopped this medication 2 night ago. Pt reports he took geodon 40mg this morning at 3am and also took depakote 250mg this morning at 2:50am. Pt reports he is trying to be his "own doctor" because no one else will help him. He reports at times depressed mood and feelings of hopelessness and helplessness, however he denies any suicidal ideation or homicidal ideation. Pt states he has a hx of hearing voices 2 months ago. Pt states he believed that his neighbors were talking about him. But denies any recent auditory or visual hallucinations. he reports history of suicidal ideation in the past, OD on cocaine x 7 years ago. He also reports history of cocaine and alcohol abuse in the past, However he is sober for more than x 6 years. Consultations:: List each consultation separately and include: 1. Reason for request. 2. Findings. 3. Follow-up Summary of Hospital Course include:: 1. Description of specific treatment plan utilized for patients during their course of treatmen. 2. Summarize the time- course for resolution of acute symptoms and/or regressed behaviors. 3. Describe issues identified and worked on during hospitalization. 4. Describe medication utilized. 5. Describe medical problems identified and treated. 6. Reassessment of suicide risk Summary of Hospital Course: Pt is a 42 year old single male, last discharged from 7 years ago, came to the ED with irritable and agitated mood and racing of thoughts. Pt reports history of multiple inpatient psychiatric hospitalizations, last discharged from 7 years ago. Currently he is following up with Dr. Matute at [facility]. As per the patient he has not slept for more than 1 month. Pt reports he is a pt at [facility] with Dr. Matute and had recently adjusted his medication x 2 months ago. Pt feels its the geodon that has caused him to not be able to sleep. Pt reports he might get 1 or 2 hours of sleep a night but not until about 5am. Pt reports he attempted to speak with Dr. Matute and he was sent to the hospital for stabilization. He reports poor sleep, irritable and agitated mood, racing of thoughts and flight of ideas. He also reports poor concatenation, and poor focus. Pt stopped this medication 2 night ago. Pt reports he took geodon 40mg this morning at 3am and also took depakote 250mg this morning at 2:50am. Pt reports he is trying to be his "own doctor" because no one else will help him. He reports at times depressed mood and feelings of hopelessness and helplessness, however he denies any suicidal ideation or homicidal ideation. Pt states he has a hx of hearing voices 2 months ago. Pt states he believed that his neighbors were talking about him. But denies any recent auditory or visual hallucinations. he reports history of suicidal ideation in the past, OD on cocaine x 7 years ago. He also reports history of cocaine and alcohol abuse in the past, However he is sober for more than x 6 years. PMH: Hypothyroidism - Diagnosis (1) Schizoaffective disorder Current Visit: Yes Status: Acute - Final Diagnosis (DSM 5) Condition upon Discharge: GOOD DSM 5: Schizoaffective disorder bipolar type Disposition: HOME/ ROUTINE Follow-up Treatment Plan: Schizoaffective disorder bipolar type CBT Psychoeducation Supportive therapy, group therapy, individual therapy reduce Wellbutrin 300 mg PO daily Depakote 500 mg by mouth Q daily Depakote 500 mg by mouth QHS Trazodone 100 mg by mouth daily at bedtime [place] Seroquel 100 mg by mouth daily at bedtime DC [place] 300 mg PO TID Start Haldol 10 mg PO QHS Start 1 mg PO Q HS Hypothyroidism: Levothyroxine 150 mncg Daily Prescriptions/Medication Reconciliation: Benztropine [Cogentin] 1 mg PO HS #30 tab buPROPion XL [Wellbutrin XL] 150 mg PO ONCE #90 t24 Divalproex [Depakote DR] 500 mg PO BID #60 tcp Haloperidol [Haldol] 10 mg PO HS #30 tab traZODone [Desyrel] 100 mg PO HS #60 tab Zolpidem [Ambien] 10 mg PO HS PRN #30 tab PRN Reason: Insomnia - Smoking Cessation Smoking Cessation Medication prescribed: No - Antipsychotic Medications Pt discharged on 2 or more routine antipsychotic medications: No
== END 2018-05-06 11:04 | disposition home or self-care (01) | DRG 885 ==
LOC: C.ER 14:53 → C.5E 19:14
PROVIDERS: ADMIT Psychiatry & Neurology Psychiatry; ATTEND Psychiatry & Neurology Psychiatry
DX: F25.0 Schizoaffective disorder, bipolar type (principal); E03.9 Hypothyroidism, unspecified; F20.0 Paranoid schizophrenia; G47.00 Insomnia, unspecified; I10 Essential (primary) hypertension

== ENCOUNTER 2018-06-11 20:18 | Emergency (ER) | payer MEDICAID, MEDICARE ==
[2018-06-11 20:18] VITALS: BMI 37.3
[2018-06-11 20:39] VITALS: BP 123/81; PULSE 96; RESP 18; TEMP 98; O2SAT 98
--- NOTE | 2018-06-11 20:47 | C.PDOC ---
History Of Present Illness 43 year old male with a Hx paranoid schizophrenia and bipolar disorder presents to the ER for psychiatric evaluation. Patient states he had a fight with his girlfriend which left him "traumatized" and now requesting to speak with a psychiatrist. Patient does exhibit paranoid behavior at bedside. Denies physical complaints at this time. Time Seen by Provider: 06/11/18 20:28 Chief Complaint (Nursing): Psychiatric Evaluation History Per: Patient History/Exam Limitations: no limitations Onset/Duration Of Symptoms: Hrs Current Symptoms Are (Timing): Still Present Suicide/Self Injury Attempted (Context): None Associated Symptoms: denies: Depression, Suicidal Thoughts Involuntary Hold By: None Recent travel outside of the [place]: No Past Medical History Reviewed: Historical Data, Nursing Documentation, Vital Signs Vital Signs: Last Vital Signs Temp 98 F 06/11/18 20:32 Pulse 96 H 06/11/18 20:32 Resp 18 06/11/18 20:32 BP 123/81 06/11/18 20:32 Pulse Ox 98 06/11/18 21:27 - Medical History PMH: Anxiety, Bipolar Disorder, Depression, HTN, Hypothyroidism, Paranoia, Schizophrenia - [facility] Procedures EXTRACTION OF RIGHT GREATER SAPHENOUS VEIN, OPEN APPROACH (10/15/17) OCCLUSION OF RIGHT GREATER SAPHENOUS VEIN, OPEN APPROACH (10/15/17) Family History: States: Unknown Family Hx - Social History Hx Tobacco Use: No Hx Alcohol Use: Yes (recovering ETOH) Hx Substance Use: No - Immunization History Hx Tetanus Toxoid Vaccination: No Hx Influenza Vaccination: No Hx Pneumococcal Vaccination: No Review Of Systems Constitutional: Negative for: Fever, Chills Cardiovascular: Negative for: Chest Pain, Palpitations Respiratory: Negative for: Cough, Shortness of Breath Gastrointestinal: Negative for: Nausea, Vomiting Physical Exam - Physical Exam Appears: Non-toxic, Other (Slightly anxious) Skin: Normal Color, Warm, Dry Head: Atraumatic, Normacephalic Eye(s): bilateral: Normal Inspection Oral Mucosa: Moist Neck: Normal, Supple Chest: Symmetrical, No Tenderness Cardiovascular: Rhythm Regular Respiratory: Normal Breath Sounds, No Rales, No Rhonchi, No Wheezing Gastrointestinal/Abdominal: Soft, No Tenderness Extremity: Normal ROM (x4) Neurological/Psych: Oriented x3, Normal Speech ED Course And Treatment - Laboratory Results Result Diagrams: 06/11/18 20:59 06/11/18 20:59 O2 Sat by Pulse Oximetry: 98 (Room air) Pulse Ox Interpretation: Normal Medical Decision Making Medical Decision Making: Blood work and urinalysis ordered. Patient has been medically cleared. pt seen by crisis cleared for dc. pt walked out prior to dc paperwork. Disposition - Disposition Referrals: Alexandro Wilson, NIURKA, [facility] TECHNIC[facility] [Primary Care Provider] - Disposition: ELOPEMENT - ER ONLY Disposition Time: 11:00 Condition: UNKNOWN Forms: [facility] (Georgian) - Clinical Impression Clinical Impression: Paranoid schizophrenia - Scribe Statement The provider has reviewed the documentation as recorded by the Scribe Ramos Diggs All medical record entries made by the Scribe were at my direction and personally dictated by me. I have reviewed the chart and agree that the record accurately reflects my personal performance of the history, physical exam, medical decision making, and the department course for this patient. I have also personally directed, reviewed, and agree with the discharge instructions and disposition.
[2018-06-11 21:03] LABS: BASO # 0.1 K/uL (0.0-0.2); BASO % 0.7 % (0.0-2.0); EOS # 0.3 K/uL (0.0-0.7); EOS % 3.6 % (0.0-4.0); HEMOGLOBIN 14.7 g/dL (12.0-18.0); LYMPH # 3.4 K/uL (1.0-4.3); LYMPH % 39.7 % (20.0-40.0); MEAN CORPUSCULAR HEMOGLOBIN 29.8 pg (27.0-31.0); MEAN CORPUSCULAR HGB CONC 33.4 g/dL (33.0-37.0); MEAN PLATELET VOLUME 10.6 fL (7.2-11.7); MONO # 0.6 K/uL (0.0-0.8); NEUT # 4.2 K/uL (1.8-7.0); NRBC % 0.1 % (0.0-2.0); RBC 4.94 Mil/uL (4.40-5.90); RED CELL DISTRIBUTION WIDTH 13.7 % (11.5-14.5); WHITE BLOOD COUNT 8.6 K/uL (4.8-10.8)
[2018-06-11 21:10] LABS: MEAN CELL VOLUME 89.1 fL (80.0-94.0)
[2018-06-11 21:15] LABS: ACETAMINOPHEN < 10.0 ug/mL (10.0-30.0); SALICYLATE < 1.0 mg/dL 1
[2018-06-11 21:16] LABS: ALB/GLOB RATIO 1.5 (1.0-2.1); ALBUMIN 4.5 g/dL (3.5-5.0); ALT/SGPT 50 U/L (21-72); AST/SGOT 25 U/L (17-59); BLOOD UREA NITROGEN 28 mg/dL (9-20); CALCIUM 9.5 mg/dl (8.6-10.4); GFR AFRICAN-AMERICAN > 60; GFR NON-AFRICAN AMERICAN > 60; URINE BILIRUBIN NEGATIVE (NEGATIVE); URINE BLOOD NEGATIVE (NEGATIVE); URINE CLARITY Clear (Clear); URINE COLOR Yellow (YELLOW); URINE GLUCOSE (UA) NORMAL (Normal); URINE LEUKOCYTE ESTERASE NEG Leu/uL (Negative); URINE PROTEIN NEGATIVE (NEGATIVE); URINE UROBILINOGEN NORMAL mg/dL (0.2-1.0)
[2018-06-11 21:22] LABS: BARBITURATES, UR NEGATIVE (NEGATIVE); BENZODIAZEPINES, UR NEGATIVE (NEGATIVE); OPIATES, UR NEGATIVE (NEGATIVE); PHENCYCLIDINE, UR NEGATIVE (NEGATIVE)
== END 2018-06-11 21:53 | disposition left against medical advice (07) ==
LOC: C.ER 20:18 → SUPCPDRO 20:18 → C.ER 21:53
DX: F20.0 Paranoid schizophrenia (principal); I10 Essential (primary) hypertension; E03.9 Hypothyroidism, unspecified
CPT/HCPCS: 80053; 81001; 85025; 99283; G0480

== ENCOUNTER 2018-06-15 20:20 | Inpatient (IN) | payer MEDICARE ==
[2018-06-15 20:20] VITALS: BMI 37.3
--- NOTE | 2018-06-15 20:46 | C.PDOC ---
History Of Present Illness presents with paranoid ideation worsening over 3 weeks. Denies any suicidal or homicidal ideation. No f/c/n/v Time Seen by Provider: 06/15/18 20:45 Chief Complaint (Nursing): Psychiatric Evaluation History Per: Patient History/Exam Limitations: no limitations Onset/Duration Of Symptoms: Days Current Symptoms Are (Timing): Still Present Suicide/Self Injury Attempted (Context): None Modifying Factor(s): None Severity: None Associated Symptoms: Depression, Paranoia Involuntary Hold By: None Recent travel outside of the [place]: No Additional History Per: Patient Past Medical History Vital Signs: Last Vital Signs Temp 98.8 F 06/15/18 20:36 Pulse 91 H 06/15/18 20:36 Resp 18 06/15/18 20:36 BP 112/74 06/15/18 20:36 Pulse Ox 96 06/15/18 20:45 - Medical History PMH: Anxiety, Bipolar Disorder, Depression, HTN, Hypothyroidism, Paranoia, Schizophrenia Denies: Diabetes, Hepatitis, HIV, Chronic Kidney Disease, Seizures - [facility] Procedures EXTRACTION OF RIGHT GREATER SAPHENOUS VEIN, OPEN APPROACH (10/15/17) OCCLUSION OF RIGHT GREATER SAPHENOUS VEIN, OPEN APPROACH (10/15/17) Family History: States: Unknown Family Hx - Social History Hx Tobacco Use: No Hx Alcohol Use: Yes (recovering ETOH) Hx Substance Use: No - Immunization History Hx Tetanus Toxoid Vaccination: No Hx Influenza Vaccination: Yes Hx Pneumococcal Vaccination: No Review Of Systems Constitutional: Negative for: Fever, Chills Cardiovascular: Negative for: Chest Pain Respiratory: Negative for: Shortness of Breath Gastrointestinal: Negative for: Abdominal Pain Musculoskeletal: Negative for: Back Pain Neurological: Negative for: Weakness Psych: Positive for: Depression Physical Exam - Physical Exam Appears: Non-toxic, No Acute Distress Skin: Warm, Dry Head: Normacephalic Eye(s): bilateral: Normal Inspection Neck: Supple Cardiovascular: Rhythm Regular Respiratory: No Rales, No Rhonchi, No Wheezing Gastrointestinal/Abdominal: Soft, No Tenderness, No Distention Back: Normal Inspection Extremity: Normal ROM Extremity: Bilateral: Atraumatic Neurological/Psych: Oriented x3 Gait: Steady ED Course And Treatment - Laboratory Results Result Diagrams: 06/15/18 21:09 06/15/18 21:09 O2 Sat by Pulse Oximetry: 96 Pulse Ox Interpretation: Normal Disposition Discussed With : Ela Inman Comment: accepted the pt on his service and took over the care at 10:18 PM Doctor Will See Patient In The: Hospital Counseled Patient/Family Regarding: Studies Performed, Diagnosis - Disposition Disposition: HOSPITALIZED Disposition Time: 20:45 Condition: FAIR Forms: [facility] (Vietnamese) - POA Present On Arrival: None - Clinical Impression Clinical Impression: Schizophrenia Decision To Admit - Pt Status Changed To: Hospital Disposition Of: Inpatient - Admit Certification Admit to Inpatient:: After my assessment, the patient will require hospitalization for at least two midnights. This is because of the severity of symptoms shown, intensity of services needed, and/or the medical risk in this patient being treated as an outpatient. - InPatient: Physician Admission Certification: I certify that this patient requires 2 or more midnights of care for the following reason:: After my assessment, the patient will require hospitalization for at least two midnights. This is because of the severity of symptoms shown, intensity of services needed, and/or the medical risk in this patient being treated as an outpatient. - . Bed Request Type: Psychiatry Admitting Physician: Ela Inman Patient Diagnosis: Schizophrenia
[2018-06-15 21:13] LABS: BASO # 0.1 K/uL (0.0-0.2); BASO % 0.7 % (0.0-2.0); EOS # 0.3 K/uL (0.0-0.7); EOS % 3.1 % (0.0-4.0); HEMOGLOBIN 14.5 g/dL (12.0-18.0); LYMPH # 4.1 K/uL (1.0-4.3); LYMPH % 43.5 % (20.0-40.0); MEAN CELL VOLUME 88.8 fL (80.0-94.0); MEAN CORPUSCULAR HEMOGLOBIN 29.6 pg (27.0-31.0); MEAN CORPUSCULAR HGB CONC 33.4 g/dL (33.0-37.0); MEAN PLATELET VOLUME 11.1 fL (7.2-11.7); MONO # 0.6 K/uL (0.0-0.8); MONO % 6.9 % (0.0-10.0); NEUT # 4.3 K/uL (1.8-7.0); NEUT % 45.8 % (50.0-75.0); NRBC % 0.1 % (0.0-2.0); RBC 4.89 Mil/uL (4.40-5.90); RED CELL DISTRIBUTION WIDTH 13.5 % (11.5-14.5); WHITE BLOOD COUNT 9.3 K/uL (4.8-10.8)
[2018-06-15 21:22] LABS: URINE BILIRUBIN NEGATIVE (NEGATIVE); URINE BLOOD NEGATIVE (NEGATIVE); URINE CLARITY Clear (Clear); URINE COLOR Yellow (YELLOW); URINE GLUCOSE (UA) NORMAL (Normal); URINE LEUKOCYTE ESTERASE NEG Leu/uL (Negative); URINE PROTEIN NEGATIVE (NEGATIVE); URINE UROBILINOGEN NORMAL mg/dL (0.2-1.0)
[2018-06-15 21:28] LABS: ALB/GLOB RATIO 1.6 (1.0-2.1); ALBUMIN 4.5 g/dL (3.5-5.0); ALT/SGPT 46 U/L (21-72); AST/SGOT 25 U/L (17-59); BLOOD UREA NITROGEN 29 mg/dL (9-20); CALCIUM 9.9 mg/dl (8.6-10.4); GFR AFRICAN-AMERICAN > 60; GFR NON-AFRICAN AMERICAN > 60
[2018-06-15 21:38] LABS: BARBITURATES, UR NEGATIVE (NEGATIVE); BENZODIAZEPINES, UR NEGATIVE (NEGATIVE); OPIATES, UR NEGATIVE (NEGATIVE); PHENCYCLIDINE, UR NEGATIVE (NEGATIVE)
--- NOTE | 2018-06-15 22:47 | PCM.BM ---
<Monty Felder - Last Filed: 06/15/18 22:45> Treatment Plan Problems - Problems identified on initial assessmt Paranoia Date Initiated: 06/15/18 Time Initiated: 22:45 Assessment reference: NA Status: Active Depression Date Initiated: 06/15/18 Time Initiated: 22:45 Assessment reference: NA Status: Active Treatment assets and liabiliti Patient Assests: adapts well, cooperative, motivated, ADL independent, negotiates basic needs, financial stabiity Patient Liabilities: poor support system (No cose relationships), dietary restrictions (Obesity) - Milieu Protocol Maintain good personal hygiene: daily Encourage regular showers, daily Remind patient to perform daily oral care, every shift Assist patient to perform ADL's Conduct patient checks and document Observation sheet: Q15 minutes (For safety) Maintain personal safety: every shift Educate patient to report safety concerns to staff, every shift Monitor environment for contraband/sharps Medication safety: Monitor for expected outcome, potential side effects: every shift, Assess barriers to learning: every shift, Assess readiness for medication education: every shift <Nataly Lincoln - Last Filed: 06/17/18 11:13> - Diagnosis (1) Schizoaffective disorder Status: Acute Interventions: 06/17/18 11:13 * Assess/adjust medications daily and /or as needed * See patient on an individual basis 7x/week to assess status of hallucinations * Discuss risks, benefits, side effects and alternatives of medications * <Terra Bravo - Last Filed: 06/17/18 14:40> Family Contact Family involvement: Famliy/SO not involved - Goals for Treatment Patient goals for treatment: "I need the right medication." Discharge/Continuing Care - Education Needs Education Needs: Patient Medication, Patient Coping Skills - Discharge Discharge Criteria: Tolerates medication w/o severe side effects, Reduction of target symptoms Discharge to:: Home - Treatment Team Participation Discussed with Family/SO: No Was Patient/Family/SO present at Treatment Team Meeting: Yes
--- NOTE | 2018-06-16 11:48 | PCM.PSYCH ---
Initial Psychiatric Evaluation - Initial Psychiatric Evaluation Type of Admission: Voluntary Legal Status: Capacity Chief Complaint (in patient's own words): "i was paranoid, suicidal, depressed" History of Present Illness and Precipitating Events: The patient is seen, chart reviewed and case discussed. This is a 43-year-old male, single with no child, lives with his friend and friend's daughter. He is on disability because of psychiatric problems. The patient [facility] The patient says he came back because he was starting to get suicidal again and feels depressed and more importantly he states he is paranoid. He feels like people talk about him and also about to get him. He was referred to [facility] program but he couldn't go after a few sessions because his insurance was denied there. He is known to be an extremely picky person about medications which she also admits. He says he used pretty much every medication except for a few and he objects many of them for various reasons. He doesn't want Depakote for weight gain and he claims many other medications don't work. He now agreed to use Prolixin and continue Wellbutrin 300 mg, not 450. For sleep he will try Atarax 50 along with Ambien and trazodone. He points insomnia as his main problem lately. Past psych history: Several admissions, diagnosed with bipolar disorder and than schizoaffective disorder. Medical history: Hypothyroidism Family psych history: Unknown Current Medications: Active Medications Generic Name Dose Route Start Last Admin Trade Name Freq PRN Reason Stop Dose Admin Pneumococcal Polyvalent Vaccine 0.5 ml 06/18/18 10:00 Pneumovax 23 Vaccine IM 06/18/18 10:01 .ONCE ONE Trazodone HCl 100 mg 06/16/18 00:21 Desyrel PO HS PRN Insomnia Past Psychiatric History - Past Psychiatric History Previous Treatment History: Inpatient Pertinent Medical Hx (Current Medical&Sleep Prob, Allergies): Allergies Allergy/AdvReac Type Severity Reaction Status Date / Time Penicillins Allergy SWELLING Verified 06/15/18 20:42 Levothyroxine [Synthroid] 150 mcg PO DAILY 07/12/16 Divalproex [Depakote DR] 500 mg PO BID #60 tcp 05/06/18 Haloperidol [Haldol] 10 mg PO HS #30 tab 05/06/18 Benztropine [Cogentin] 1 mg PO BID 06/11/18 Haloperidol [Haldol] 5 mg PO DAILY 06/11/18 buPROPion XL [Wellbutrin XL] 450 mg PO DAILY 06/11/18 Review of Systems - Neurological Neurological: UNREMARKABLE - Psychiatric Psychiatric: Abnormal Sleep Pattern, Anhedonia, Anxiety, Change in Appetite, Depression, Difficulty Concentrating, Irritability, Paranoia, Suicidal Ideation. absent: Hallucinations, Homicidal Ideation Mental Status Examination - Personal Presentation Personal Presentation: Looks older than stated age - Affect Affect: Constricted - Motor Activity Motor Activity: Calm - Reliability in Providing Information Reliability in Providing Information: Good - Speech Speech: Organized - Mood Mood: Depressed, Anxious - Formal Thought Process Formal Thought Process: Delusions, Paranoia, Loosening of associations - Cognitive Functions Orientation: Person, Place, Situation, Time Sensorium: Alert Attention/Concentration: Attentive Estimate of Intelligence: Average Judgement: Intact, as evidence by: Insight regarding need for hospitalization Memory: Recent intact, as evidence by: Ability to recall events of the day, Remote intact, as evidenced by: Abilit to recall sig. life events - Risk Risk: Diminished functioning - Strength & Assets Inventory Strength & Assets Inventory: Cooperative - Limitations Limitations: Other DSM 5 DX - DSM 5 DSM 5 Diagnosis: Schizoaffective d/o- depressed Cocaine use d/o- in remission - Recommended/Plan of Treatment Treatment Recommendations and Plan of Treatment: Prolixin, Wellbutrin Trazodone, Ambien Atarax for insomnia Levoxyl for hypothyroidism Topamax for weight loss As need medications All risks, benefits and alternatives of the meds discussed, and the pt agreed and understood. Attend groups and activities Individual therapy daily Psychoeducation and support daily Encourage compliance with meds and after care Refer to outpatient program Teach healthy lifestyle methods, i.e. diet, exercise, meditation Smoking cessation and patch if needed 32 min Projected ELOS: 5 days Prognosis: good w treatment - Smoking Cessation Smoking Cessation Initiated: Yes
[2018-06-16] MEDS ORDERED: Levothyroxine 150 MCG TAB PO SCH (12:00)
[2018-06-16] MEDS: buPROPion 150 mg/24 Hours XL Tab PO SCH (12:38)
[2018-06-17 06:37] VITALS: O2SAT 96
[2018-06-17] MEDS: Levothyroxine 150 MCG TAB PO SCH (06:50)
[2018-06-17] MEDS: buPROPion 150 mg/24 Hours XL Tab PO SCH (09:18)
--- NOTE | 2018-06-17 11:13 | PCM.PYCHPN ---
Psychiatric Progress Note - Psychiatric Progress Note Patient seen today, length of contact: 15 min Medication Change: Yes Medical Record Reviewed: Yes Mental Status Examination - Cognitive Function Orientation: Person, Place, Situation, Time Memory: Intact Attention: WNL Concentration: Poor Association: Loose Fund of Knowledge: Poor - Mood Mood: Depressed, Anxious - Affect Affect: Constricted - Speech Speech: Soft - Formal Thought Process Formal Thought Process: Delusions, Paranoia, Loosening of associations - Suicidal Ideation Suicidal Ideation: No - Homicidal Ideation Homicidal Ideation: No Goal/Treatment Plan - Goal/Treatment Plan Need for Continued Stay: Severe depression anxiety, Severe functional impairment Progress Toward Problem(s) and Goals/Treatment Plan: Schizoaffective d/o- depressed Cocaine use d/o- in remission Prolixin, Wellbutrin Trazodone, Ambien Atarax for insomnia Levoxyl for hypothyroidism Topamax for weight loss As need medications All risks, benefits and alternatives of the meds discussed, and the pt agreed and understood. Attend groups and activities Individual therapy daily Psychoeducation and support daily Encourage compliance with meds and after care Refer to outpatient program Teach healthy lifestyle methods, i.e. diet, exercise, meditation Smoking cessation and patch if needed
[2018-06-18] MEDS: Levothyroxine 150 MCG TAB PO SCH (06:39)
[2018-06-18] MEDS ORDERED: Pneumococcal 23-Valent Vaccine IM ONE (10:00)
[2018-06-18] MEDS: buPROPion 150 mg/24 Hours XL Tab PO SCH (10:19)
--- NOTE | 2018-06-18 12:34 | PCM.PYCHPN ---
Psychiatric Progress Note - Psychiatric Progress Note Patient seen today, length of contact: 15 min Patient Chief Complaint: "I am still depressed" Problems Identified/Issues Discussed: The patient was seen and chart was discussed and reviewed with the nurse. The patient states that he still has paranoia and and very depressed. He still feels as if people are talking about him. The patient reports that he also has trouble sleeping. He still admits to having suicidal thoughts. Medication Change: Yes Medical Record Reviewed: Yes Mental Status Examination - Cognitive Function Orientation: Person, Place, Situation, Time Memory: Intact Attention: WNL Concentration: Poor Association: Loose Fund of Knowledge: Poor - Mood Mood: Depressed, Anxious - Affect Affect: Constricted - Speech Speech: Appropriate, Soft - Formal Thought Process Formal Thought Process: Delusions, Paranoia, Loosening of associations - Suicidal Ideation Suicidal Ideation: Yes - Homicidal Ideation Homicidal Ideation: No Goal/Treatment Plan - Goal/Treatment Plan Need for Continued Stay: Severe depression anxiety, Severe functional impairment Progress Toward Problem(s) and Goals/Treatment Plan: Schizoaffective d/o- depressed Cocaine use d/o- in remission Cogentin 1 mg PO BID Wellbutrin 300 mg PO Prolixin 10 mg BID Hydroxyzine 50 mg PO Synthroid 150 mcg PO Topiramate 50 mg PO BID Trazodone 100 mg PO Zolpidem 5 mg PO PRN As need medications All risks, benefits and alternatives of the meds discussed, and the pt agreed and understood. Attend groups and activities Individual therapy daily Psychoeducation and support daily Encourage compliance with meds and after care Refer to outpatient program Teach healthy lifestyle methods, i.e. diet, exercise, meditation Smoking cessation and patch if needed
[2018-06-19] MEDS: Levothyroxine 150 MCG TAB PO SCH (06:02)
[2018-06-19 06:21] VITALS: BP 106/72; PULSE 96; RESP 18; TEMP 98.1
[2018-06-19] MEDS: buPROPion 150 mg/24 Hours XL Tab PO SCH (09:56)
--- NOTE | 2018-06-19 10:14 | PCM.PYCHDC ---
Mental Status Examination - Mental Status Examination Orientation: Person, Place, Situation, Time Memory: Intact Mood: Neutral Affect: Constricted Speech: Soft Attention: WNL Concentration: WNL Association: WNL Fund of Knowledge: WNL Formal Thought Process: No Impairment Description of patient's judgement and insight: good, fair Psychotic Thoughts and Behaviors: denies any AVH Suicidal Ideation: No Current Homicidal Ideation?: No Discharge Summary - Discharge Note Reason for Hospitalization: The patient is seen, chart reviewed and case discussed. This is a 43-year-old male, single with no child, lives with his friend and friend's daughter. He is on disability because of psychiatric problems. The patient is known from a recent admission to [facility]. The patient says he came back because he was starting to get suicidal again and feels depressed and more importantly he states he is paranoid. He feels like people talk about him and also about to get him. He was referred to [facility] program but he couldn't go after a few sessions because his insurance was denied there. He is known to be an extremely picky person about medications which she also admits. He says he used pretty much every medication except for a few and he objects many of them for various reasons. He doesn't want Depakote for weight gain and he claims many other medications don't work. He now agreed to use Prolixin and continue Wellbutrin 300 mg, not 450. For sleep he will try Atarax 50 along with Ambien and trazodone. He points insomnia as his main problem lately. Past psych history: Several admissions, diagnosed with bipolar disorder and than schizoaffective disorder. Consultations:: List each consultation separately and include: 1. Reason for request. 2. Findings. 3. Follow-up Summary of Hospital Course include:: 1. Description of specific treatment plan utilized for patients during their course of treatmen. 2. Summarize the time- course for resolution of acute symptoms and/or regressed behaviors. 3. Describe issues identified and worked on during hospitalization. 4. Describe medication utilized. 5. Describe medical problems identified and treated. 6. Reassessment of suicide risk - Diagnosis (1) Schizoaffective disorder Current Visit: No Status: Acute - Final Diagnosis (DSM 5) Condition upon Discharge: FAIR DSM 5: Schizoaffective d/o- depressed Cocaine use d/o- in remission Disposition: HOME/ ROUTINE Follow-up Treatment Plan: Schizoaffective d/o- depressed Cocaine use d/o- in remission Cogentin 1 mg PO BID Wellbutrin 300 mg PO Prolixin 10 mg BID Hydroxyzine 50 mg PO Synthroid 150 mcg PO Topiramate 50 mg PO BID Trazodone 100 mg PO Zolpidem 5 mg PO PRN As need medications All risks, benefits and alternatives of the meds discussed, and the pt agreed and understood. Attend groups and activities Individual therapy daily Psychoeducation and support daily Encourage compliance with meds and after care Refer to outpatient program Teach healthy lifestyle methods, i.e. diet, exercise, meditation Smoking cessation and patch if needed Prescriptions/Medication Reconciliation: Benztropine [Cogentin] 1 mg PO BID #60 tab buPROPion XL [Wellbutrin XL] 300 mg PO DAILY #30 t24 fluPHENAZine [Prolixin] 10 mg PO BID #60 tab Levothyroxine [Synthroid] 150 mcg PO DAILY #30 tab traZODone [Desyrel] 100 mg PO HS PRN #30 tab PRN Reason: Insomnia Zolpidem [Ambien] 10 mg PO HS PRN #30 tab PRN Reason: Insomnia
== END 2018-06-19 11:00 | disposition home or self-care (01) | DRG 885 ==
LOC: C.ER 20:20 → C.9E 22:17 → C.5E 22:45
PROVIDERS: ADMIT Psychiatry & Neurology Psychiatry; ATTEND Psychiatry & Neurology Psychiatry
PROC: GZHZZZZ Group Psychotherapy (ICD-10-PCS; principal; 2018-06-15)
PROC: GZ56ZZZ Individual Psychotherapy, Supportive (ICD-10-PCS; 2018-06-15)
DX: F25.1 Schizoaffective disorder, depressive type (principal); R45.851 Suicidal ideations; E03.9 Hypothyroidism, unspecified; F14.21 Cocaine dependence, in remission; F31.9 Bipolar disorder, unspecified; I10 Essential (primary) hypertension; G47.00 Insomnia, unspecified; F41.8 Other specified anxiety disorders

== ENCOUNTER 2018-07-03 10:33 | Emergency (ER) | payer MEDICARE ==
[2018-07-03 10:33] VITALS: BMI 37.3
[2018-07-03 10:47] VITALS: BP 132/73; PULSE 83; RESP 18; TEMP 98.2; O2SAT 97
--- NOTE | 2018-07-03 11:13 | C.PDOC ---
History Of Present Illness 43 year old male with a PMHx of schizophrenia, presents to the ED requesting med refill. Patient states his next appointment with psychiatrist is 2 weeks from today. He reports feeling depressed in the mornings, but is currently asymptomatic. Otherwise he denies any suicidal or homicidal ideation. Patient has no physical complaints at this time. Time Seen by Provider: 07/03/18 10:51 Chief Complaint (Nursing): Med Refill History Per: Patient History/Exam Limitations: no limitations Onset/Duration Of Symptoms: Days Current Symptoms Are (Timing): Still Present Past Medical History Reviewed: Historical Data, Nursing Documentation, Vital Signs Vital Signs: Last Vital Signs Temp 98.2 F 07/03/18 10:40 Pulse 83 07/03/18 10:40 Resp 18 07/03/18 10:40 BP 132/73 07/03/18 10:40 Pulse Ox 97 07/03/18 14:04 - Medical History PMH: Anxiety, Bipolar Disorder, Depression, HTN, Hypothyroidism, Paranoia, Schizophrenia Denies: Diabetes, Hepatitis, HIV, Chronic Kidney Disease, Seizures - [facility] Procedures EXTRACTION OF RIGHT GREATER SAPHENOUS VEIN, OPEN APPROACH (10/15/17) GROUP PSYCHOTHERAPY (06/15/18) INDIVIDUAL PSYCHOTHERAPY, SUPPORTIVE (06/15/18) OCCLUSION OF RIGHT GREATER SAPHENOUS VEIN, OPEN APPROACH (10/15/17) Family History: States: Unknown Family Hx - Social History Hx Tobacco Use: No Hx Alcohol Use: Yes (recovering ETOH) Hx Substance Use: Yes - Immunization History Hx Tetanus Toxoid Vaccination: No Hx Influenza Vaccination: Yes Hx Pneumococcal Vaccination: No Review Of Systems Except As Marked, All Systems Reviewed And Found Negative. Constitutional: Negative for: Fever Respiratory: Negative for: Shortness of Breath Psych: Positive for: Depression. Negative for: Suicidal ideation, Other ( homicidal ideation) Physical Exam - Physical Exam Appears: Non-toxic, No Acute Distress Skin: Normal Color, Warm, No Rash Head: Atraumatic, Normacephalic Eye(s): bilateral: Normal Inspection Oral Mucosa: Moist Neck: Normal ROM, Supple Chest: Symmetrical Cardiovascular: Rhythm Regular, No Murmur Respiratory: Normal Breath Sounds, No Rales, No Rhonchi, No Wheezing Extremity: Bilateral: Atraumatic, Normal Color And Temperature, Normal ROM Neurological/Psych: Oriented x3, Normal Speech Gait: Steady ED Course And Treatment O2 Sat by Pulse Oximetry: 97 (RA) Pulse Ox Interpretation: Normal Medical Decision Making Medical Decision Making: Impression: 43 year old requesting med refill Plan: --Crisis consulted Spoke to bag shop worker, who was able to move patients appointment to 1pm today. Patient will be discharged to the psychiatrists office for further evaluation. Disposition Counseled Patient/Family Regarding: Diagnosis, Need For Followup - Disposition Referrals: [facility] Payal Griffiths, [Non-Staff] - Disposition: HOME/ ROUTINE Disposition Time: 11:00 Condition: GOOD Additional Instructions: JEFF SKAGGS, thank you for letting us take care of you today. The emergency medical care you received today was directed at your acute symptoms. If you were prescribed any medication, please fill it and take as directed. It may take several days for your symptoms to resolve. Return to the Emergency Department if your symptoms worsen, do not improve, or if you have any other problems. Please contact your doctor or call one of the physicians/clinics you have been referred to that are listed on the Patient Visit Information form that is included in your discharge packet. Bring any paperwork you were given at discharge with you along with any medications you are taking to your follow up visit. Our treatment cannot replace ongoing medical care by a primary care provider outside of the emergency department. Thank you for allowing the [facility] team to be part of your care today. Follow up with your psychiatrist at 1pm for re-evaluation. Instructions: Schizophrenia (DC) Forms: [facility] (Belarusian) - POA Present On Arrival: None - Clinical Impression Clinical Impression: Schizophrenia - Scribe Statement The provider has reviewed the documentation as recorded by the Scribe (Ling Hinton) Provider Attestation: All medical record entries made by the Scribe were at my direction and personally dictated by me. I have reviewed the chart and agree that the record accurately reflects my personal performance of the history, physical exam, medical decision making, and the department course for this patient. I have also personally directed, reviewed, and agree with the discharge instructions and disposition.
== END 2018-07-03 11:22 | disposition home or self-care (01) ==
LOC: C.ER 10:33
DX: F20.9 Schizophrenia, unspecified (principal); I10 Essential (primary) hypertension; E03.9 Hypothyroidism, unspecified

== ENCOUNTER 2018-12-17 08:32 | Inpatient (IN) | payer MEDICARE, MEDICAID ==
[2018-12-17 08:32] VITALS: BMI 37.3
--- NOTE | 2018-12-17 10:03 | C.PDOC ---
History Of Present Illness 43 y/o male,w/PMhx of anxiety, depression, and schizophrenia presents to the ER complaining of feeling depressed. Patient also states that he has side effects from his medications for his psychiatric illness, he is not able to sit still. Patient denies having suicidal ideation and homicidal ideation. Time Seen by Provider: 12/17/18 09:21 Chief Complaint (Nursing): Psychiatric Evaluation History Per: Patient History/Exam Limitations: no limitations Onset/Duration Of Symptoms: Days Current Symptoms Are (Timing): Still Present Severity: Moderate Past Medical History Reviewed: Historical Data, Nursing Documentation, Vital Signs Vital Signs: Last Vital Signs Temp 97.6 F 12/17/18 08:38 Pulse 93 H 12/17/18 08:38 Resp 18 12/17/18 08:38 BP 139/82 12/17/18 08:38 Pulse Ox 95 12/17/18 08:38 - Medical History PMH: Anxiety, Bipolar Disorder, Depression, HTN, Hypothyroidism, Paranoia, Schizophrenia Denies: Diabetes, Hepatitis, HIV, Chronic Kidney Disease, Seizures Other Surgeries: Hx of surgeries - [facility] Procedures EXTRACTION OF RIGHT GREATER SAPHENOUS VEIN, OPEN APPROACH (10/15/17) GROUP PSYCHOTHERAPY (06/15/18) INDIVIDUAL PSYCHOTHERAPY, SUPPORTIVE (06/15/18) OCCLUSION OF RIGHT GREATER SAPHENOUS VEIN, OPEN APPROACH (10/15/17) Family History: States: No Known Family Hx - Social History Hx Tobacco Use: No Hx Alcohol Use: Yes (RECOVERING) Hx Substance Use: Yes (RECOVERING) - Immunization History Hx Tetanus Toxoid Vaccination: Yes Hx Influenza Vaccination: Yes Hx Pneumococcal Vaccination: No Review Of Systems Except As Marked, All Systems Reviewed And Found Negative. Constitutional: Negative for: Fever, Chills Psych: Positive for: Depression. Negative for: Suicidal ideation Physical Exam - Physical Exam Appears: Other (pressured speech) Skin: Normal Color, Warm, Dry Head: Atraumatic, Normacephalic Eye(s): bilateral: Normal Inspection Nose: Normal Oral Mucosa: Moist Neck: Supple Chest: Symmetrical Cardiovascular: Rhythm Regular Respiratory: Normal Breath Sounds, No Rales, No Rhonchi, No Wheezing Gastrointestinal/Abdominal: Soft, No Tenderness, No Guarding, No Rebound Neurological/Psych: Oriented x3, No Normal Speech (pressured speech) ED Course And Treatment - Laboratory Results Result Diagrams: 12/17/18 10:22 12/17/18 10:22 O2 Sat by Pulse Oximetry: 95 (RA) Pulse Ox Interpretation: Normal Medical Decision Making Medical Decision Making: Plan: --Labs --UA Updates: 11:01 AM Patient has been medically cleared for CRISIS. Disposition - Disposition Disposition: HOSPITALIZED Disposition Time: 15:00 Condition: STABLE - Clinical Impression Clinical Impression: Schizophrenia - Scribe Statement The provider has reviewed the documentation as recorded by the Yogi Diaz Provider Attestation: All medical record entries made by the Ashwinibgeorge were at my direction and personally dictated by me. I have reviewed the chart and agree that the record accurately reflects my personal performance of the history, physical exam, medical decision making, and the department course for this patient. I have also personally directed, reviewed, and agree with the discharge instructions and disposition. Decision To Admit - Pt Status Changed To: Hospital Disposition Of: Inpatient - Admit Certification Admit to Inpatient:: After my assessment, the patient will require hospital ization for at least two midnights. This is because of the severity of symptoms shown, intensity of services needed, and/or the medical risk in this patient being treated as an outpatient. - InPatient: Physician Admission Certification: I certify that this patient requires 2 or more midnights of care for the following reason:: needs pysch - . Bed Request Type: Psychiatry Admitting Physician: Nataly Lincoln Patient Diagnosis: Schizophrenia
[2018-12-17 10:43] LABS: BASO # 0.1 K/uL (0.0-0.2); BASO % 0.9 % (0.0-2.0); EOS # 0.1 K/uL (0.0-0.7); EOS % 2.2 % (0.0-4.0); HEMOGLOBIN 13.9 g/dL (12.0-18.0); LYMPH # 1.9 K/uL (1.0-4.3); LYMPH % 33.7 % (20.0-40.0); MEAN CORPUSCULAR HEMOGLOBIN 29.8 pg (27.0-31.0); MEAN CORPUSCULAR HGB CONC 32.8 g/dL (33.0-37.0); MEAN PLATELET VOLUME 10.5 fL (7.2-11.7); MONO # 0.4 K/uL (0.0-0.8); MONO % 6.8 % (0.0-10.0); NEUT # 3.1 K/uL (1.8-7.0); NEUT % 56.4 % (50.0-75.0); NRBC % 0.1 % (0.0-2.0); RBC 4.65 Mil/uL (4.40-5.90); WHITE BLOOD COUNT 5.5 K/uL (4.8-10.8)
[2018-12-17 10:44] LABS: URINE BILIRUBIN NEGATIVE (NEGATIVE); URINE BLOOD NEGATIVE (NEGATIVE); URINE CLARITY Clear (Clear); URINE COLOR Yellow (YELLOW); URINE GLUCOSE (UA) NORMAL (Normal); URINE LEUKOCYTE ESTERASE NEG Leu/uL (Negative); URINE PROTEIN NEGATIVE (NEGATIVE); URINE UROBILINOGEN NORMAL mg/dL (0.2-1.0)
[2018-12-17 10:59] LABS: ALB/GLOB RATIO 1.6 (1.0-2.1); ALBUMIN 4.7 g/dL (3.5-5.0); ALT/SGPT 39 U/L (21-72); AST/SGOT 25 U/L (17-59); BLOOD UREA NITROGEN 18 mg/dL (9-20); CALCIUM 9.6 mg/dl (8.6-10.4); GFR NON-AFRICAN AMERICAN > 60
[2018-12-17 11:10] LABS: BARBITURATES, UR NEGATIVE (NEGATIVE); BENZODIAZEPINES, UR NEGATIVE (NEGATIVE); OPIATES, UR NEGATIVE (NEGATIVE); PHENCYCLIDINE, UR NEGATIVE (NEGATIVE)
--- NOTE | 2018-12-17 13:04 | PCM.BM ---
<DerrickAtiyakindra Keyes - Last Filed: 12/17/18 13:01> Treatment Plan Problems - Problems identified on initial assessmt Anxiety Date Initiated: 12/17/18 Time Initiated: 13:02 Assessment reference: NA Status: Active Depression Date Initiated: 12/17/18 Time Initiated: 13:02 Assessment reference: NA Status: Active Treatment assets and liabiliti Patient Assests: adapts well, cooperative, motivated, ADL independent, negotiates basic needs, financial stabiity Patient Liabilities: financial problems - Milieu Protocol Maintain good personal hygiene: daily Encourage regular showers, daily Remind p atient to perform daily oral care, daily Assist patient to perform ADL's Conduct patient checks and document Observation sheet: Q15 minutes Maintain personal safety: every shift Educate patient to report safety concerns to staff, every shift Monitor environment for contraband/sharps Medication safety: Monitor for expected outcome, potential side effects: every shift, Assess barriers to learning: every shift, Assess readiness for medication education: every shift <Nataly Lincoln - Last Filed: 12/18/18 11:21> - Diagnosis (1) Schizoaffective disorder Status: Acute Interventions: 12/18/18 11:22 * Assess/adjust medications daily and /or as needed * See patient on an individual basis 7x/week to assess status of hallucinations * Discuss risks, benefits, side effects and alternatives of medications * <Elaine Urrutia - Last Filed: 12/18/18 12:51> Family Contact Family involvement: Patient does not wish Family/SO involvement Family contact: Patient declines to allow family contact at present - Goals for Treatment Patient goals for treatment: "I want to go to [facility] Discharge/Continuing Care - Education Needs Education Needs: Patient Medication, Patient Diagnosis/Disease Process, Patient Coping Skills - Discharge Discharge Criteria: Free of Suicidal thoughts, Free of paranoid thoughts, Normal sleep pattern, Ability to care for self, Reduction of target symptoms Discharge to:: Home, With Family - Treatment Team Participation Discussed with Family/SO: No Was Patient/Family/SO present at Treatment Team Meeting: Yes
--- NOTE | 2018-12-17 13:24 | PCM.PSYCH ---
Initial Psychiatric Evaluation - Initial Psychiatric Evaluation Type of Admission: Voluntary Legal Status: Capacity Chief Complaint (in patient's own words): I was feeling very paranoid and anxious. History of Present Illness and Precipitating Events: Patient is a 43 yo male, who is currently unemployed and lives with his girlfriend, came to the ED with very high anxiety paranoia and disorganized behavior. Him Clerk is familiar with this patient. Patient has history of multiple inpatient psychiatric hospitalizations. He was last discharged from [facility] a few months ago. Patient reports that soon after discharge from the hospital he started following up with the [facility]. However 1 week ago patient came to the senior [facility]'s private clinic with very high anxiety, paranoia and disorganized behavior. Him Clerk referred patient to the ED, but patient mentioned that he needs some time to make a decision. However yesterday patient came to the ED with the worsening of paranoia and anxiety. Patient reports that the medication is making her more anxious and paranoid. He reports of paranoia that people are following him. He reports racing thoughts, flight of ideas, irritability, agitation and poor concentration. He reports that he can sleep and cannot stand still. He reports at times depressed mood, feelings of hopelessness and helplessness, poor sleep and poor appetite. He reports that sometimes he also thinks about suicide. However he denies any homicidal ideation. Past medical history Hypothyroidism Current Medications: Active Medications Generic Name Dose Route Start Last Admin Trade Name Freq PRN Reason Stop Dose Admin Influenza Virus Vaccine 60 mcg 12/20/18 10:00 Flucelvax Quad [id number] Syr IM 12/20/18 10:01 .ONCE ONE Pneumococcal Polyvalent Vaccine 0.5 ml 12/20/18 10:00 Pneumovax 23 Vaccine IM 12/20/18 10:01 .ONCE ONE Past Psychiatric History - Past Psychiatric History Previous Treatment History: Inpatient Pertinent Medical Hx (Current Medical&Sleep Prob, Allergies): Allergies Allergy/AdvReac Type Severity Reaction Status Date / Time Penicillins Allergy SWELLING Verified 12/17/18 08:43 Benztropine [Cogentin] 1 mg PO BID #60 tab 06/19/18 Levothyroxine [Synthroid] 150 mcg PO DAILY #30 tab 06/19/18 Topiramate [Topamax] 50 mg PO BID #60 tab 06/19/18 Zolpidem [Ambien] 10 mg PO HS PRN #30 tab 06/19/18 fluPHENAZine [Prolixin] 10 mg PO BID #60 tab 06/19/18 traZODone [Desyrel] 100 mg PO HS PRN #30 tab 06/19/18 buPROPion XL [Wellbutrin XL] 150 mg PO BID 07/03/18 OXcarbazepine [Trileptal] 150 mg PO BID 12/17/18 Review of Systems - Review of Systems All systems: reviewed and no additional remarkable complaints except - Psychiatric Psychiatric: Anxiety, Irritability, Mood Swings, Paranoia, Suicidal Ideation Mental Status Examination - Personal Presentation Personal Presentation: Looks stated age - Affect Affect: Broad - Motor Activity Motor Activity: Psychomotor Agitation - Reliability in Providing Information Reliability in Providing Information: Poor, due to alteration in thoughts, Poor, due to altered mood - Speech Speech: Disorganized - Mood Mood: Depressed, Anxious - Formal Thought Process Formal Thought Process: Delusions, Paranoia, Loosening of associations, Flight of ideas - Hallucinations/Delusions Delusions: Persecution - Obsessions/Compulsions Obsessions: No Compulsions: No - Cognitive Functions Orientation: Person, Place, Situation, Time Sensorium: Alert Attention/Concentration: Attentive Abstract Thinking: [place] Estimate of Intelligence: Below average Judgement: Imparied, as evidence by: Poor judgement, Imparied, as evidence by: Lack of insight into illness - Risk Risk: Suicidal, Diminished functioning - Strength & Assets Inventory Strength & Assets Inventory: Family support DSM 5 DX - DSM 5 DSM 5 Diagnosis: Schizoaffective disorder bipolar type Alcohol use disorder moderate - Recommended/Plan of Treatment Treatment Recommendations and Plan of Treatment: Schizoaffective disorder bipolar type Alcohol use disorder moderate CBT Psychoeducation Supportive therapy and group therapy Prolixin for paranoia Trileptal for mood swings Trazodone for insomnia Topamax for mood swings - Smoking Cessation Smoking Cessation Initiated: No
[2018-12-17] MEDS: Levothyroxine 150 MCG TAB PO SCH (13:57)
[2018-12-17] MEDS ORDERED: buPROPion 150 mg/24 Hours XL Tab PO SCH (18:00)
[2018-12-18] MEDS: Levothyroxine 150 MCG TAB PO SCH (06:44)
[2018-12-19] MEDS: Levothyroxine 150 MCG TAB PO SCH (06:42)
--- NOTE | 2018-12-19 10:20 | PCM.PYCHPN ---
Psychiatric Progress Note - Psychiatric Progress Note Patient seen today, length of contact: 15 min Patient Chief Complaint: I am feeling very paranoid and anxious.' Problems Identified/Issues Discussed: Patient was seen and evaluated, chart reviewed and discussed with staff. Patient still reports paranoia and very high anxiety. He reports that he is paranoia is getting worse and he reports irritability, agitation and racing thoughts. He also reports at times feelings of hopelessness and helplessness. He reports poor sleep and poor appetite. Is taking medication but denies any other side effects. He needs to stay longer for further stabilization. Supportive therapy was given Medication Change: Yes Medical Record Reviewed: Yes Mental Status Examination - Cognitive Function Orientation: Person, Place, Situation, Time Memory: Intact Attention: Poor Concentration: Poor Association: Loose Fund of Knowledge: Poor - Mood Mood: Anxious - Affect Affect: Broad - Speech Speech: Pressured - Formal Thought Process Formal Thought Process: Delusions, Paranoia, Loosening of associations, Flight of ideas - Suicidal Ideation Suicidal Ideation: No - Homicidal Ideation Homicidal Ideation: No Goal/Treatment Plan - Goal/Treatment Plan Need for Continued Stay: Severe depression anxiety, Severe functional impairment Progress Toward Problem(s) and Goals/Treatment Plan: Schizoaffective disorder bipolar type Alcohol use disorder moderate CBT Psychoeducation Supportive therapy and group therapy Increase Prolixin for paranoia Increase Trileptal for mood swings Trazodone for insomnia Topamax for mood swings Start Klonopin for anxiety Start Ativan 1 mg every 6-hour for anxiety
--- NOTE | 2018-12-19 23:05 | PCM.PYCHPN ---
Psychiatric Progress Note - Psychiatric Progress Note Patient seen today, length of contact: 15 min Patient Chief Complaint: My anxiety is getting worse.' Problems Identified/Issues Discussed: Patient was seen and evaluated, chart reviewed and discussed with staff. Per staff, patient is pacing back and forth in the hallways and appears very anxious and irritable. Patient still reports paranoia and very high anxiety. He reports that he is paranoia is getting worse and he reports irritability, agitation and racing thoughts. He also reports at times feelings of hopelessness and helplessness. He reports poor sleep and poor appetite. Is taking medication but denies any other side effects. He needs to stay longer for further stabilization. Supportive therapy was given Medication Change: Yes Medical Record Reviewed: Yes Mental Status Examination - Cognitive Function Orientation: Person, Place, Situation, Time Memory: Intact Attention: Poor Concentration: Poor Association: Loose Fund of Knowledge: Poor - Mood Mood: Anxious - Affect Affect: Broad - Speech Speech: Pressured - Formal Thought Process Formal Thought Process: Delusions, Paranoia, Loosening of associations, Flight of ideas - Suicidal Ideation Suicidal Ideation: No - Homicidal Ideation Homicidal Ideation: No Goal/Treatment Plan - Goal/Treatment Plan Need for Continued Stay: Severe depression anxiety, Severe functional impairment Progress Toward Problem(s) and Goals/Treatment Plan: Schizoaffective disorder bipolar type Alcohol use disorder moderate CBT Psychoeducation Supportive therapy and group therapy Stop Prolixin for paranoia Stop Trileptal for mood swings Trazodone for insomnia Increase Topamax for mood swings Klonopin for anxiety Ativan 1 mg every 6-hour for anxiety Start olanzapine for psychosis Start Zoloft for depression
[2018-12-20] MEDS: Levothyroxine 150 MCG TAB PO SCH (06:13)
[2018-12-20] MEDS ORDERED: Influenza Vaccine 60 mcg/0.5 mL SYR (4YR UP) IM ONE (10:00)
[2018-12-20] MEDS ORDERED: Pneumococcal 23-Valent Vaccine IM ONE (10:00)
--- NOTE | 2018-12-20 16:17 | PCM.PYCHPN ---
Psychiatric Progress Note - Psychiatric Progress Note Patient seen today, length of contact: 15 min Patient Chief Complaint: My anxiety is getting worse.' Problems Identified/Issues Discussed: Patient was seen and evaluated, chart reviewed and discussed with staff. Patient still reports paranoia and very high anxiety. Per staff, patient is pacing back and forth in the hallways and appears very anxious and irritable. He reports that he is paranoia is getting worse and he reports irritability, agitation and racing thoughts. He also reports at times feelings of hopelessness and helplessness. He reports poor sleep and poor appetite. Is taking medication but denies any other side effects. He needs to stay longer for further stabilization. Supportive therapy was given Medication Change: Yes Medical Record Reviewed: Yes Mental Status Examination - Cognitive Function Orientation: Person, Place, Situation, Time Memory: Intact Attention: Poor Concentration: Poor Association: Loose Fund of Knowledge: Poor - Mood Mood: Anxious - Affect Affect: Broad - Speech Speech: Pressured - Formal Thought Process Formal Thought Process: Delusions, Paranoia, Loosening of associations, Flight of ideas - Suicidal Ideation Suicidal Ideation: No - Homicidal Ideation Homicidal Ideation: No Goal/Treatment Plan - Goal/Treatment Plan Need for Continued Stay: Severe depression anxiety, Severe functional impairment Progress Toward Problem(s) and Goals/Treatment Plan: Schizoaffective disorder bipolar type Alcohol use disorder moderate CBT Psychoeducation Supportive therapy and group therapy Stop Prolixin for paranoia Stop Trileptal for mood swings Trazodone for insomnia Increase Topamax for mood swings Klonopin for anxiety Ativan 1 mg every 6-hour for anxiety Start olanzapine for psychosis Start Zoloft for depression
[2018-12-21] MEDS: Levothyroxine 150 MCG TAB PO SCH (06:17)
[2018-12-22] MEDS: Levothyroxine 150 MCG TAB PO SCH (06:22)
--- NOTE | 2018-12-22 10:05 | RAD ---
Chest x-ray two views HISTORY: Cough and fever. COMPARISON: 07/12/2016 Findings: Mild to moderate venous congestion. Patchy increased markings at the lung bases. Heart size within normal limits. Degenerative changes in the spine. Impression: Mild to moderate venous congestion. Patchy increased markings at the lung bases.
--- NOTE | 2018-12-22 11:26 | CP.PCM.CON ---
History of Present Illness - History of Present Illness History of Present Illness: Medicine consult for Diarrhea and fever CC: Diarrhea and generalized illness HPI: Patient is a 43 year old male with past medical history of hypothyroid and multiple psychiatry issues (Bipolar and Schizoaffective), who is admitted to the psychiatry unit for exacerbation of Schizoaffective disorder bipolar type. Medicine consultation was placed for fever x1 day and diarrhea X2-3 days. Patient reports that he has noted 2-4 episodes of involuntary watery to loose stool for the past 2 nights and had a watery non-bloody without mucus this morning as well but he was able to make in time to the bathroom. Patient admits to cold symptoms for the past 2-3 days but denies any cough, rhinorrhea, throat pain, watery eyes, nasal or chest congestion. In addition, patient states that he has had subjective fever, chills and generalized body aches for the past 2-3 days as well. Patient denies any symptoms of chest pain, palpitations, shortness of breath, abdominal pain, hematochezia or urinary symptoms. PMHx: hypothyroid and multiple psychiatry issues (Bipolar and Schizoaffective) PSHx: Left knee surgery and right LE vein surgery FHx: - Mother , hx of alcohol/drug abuse and psychiatric disorder -Father, 75 years old, healthy Medications: As per EMR Allergies: Penicillin; Rxn: Itchy Throat Social Hx: Lives with his Girlfriend and her daughter. Currently on disability. Former use of tobacco (1 year tobacco use, 2PPD) and Hx of Cocaine use (Last use at age 37) and 6 years sober for alcohol abuse Review of Systems - Constitutional Constitutional: Chills, Fever - EENT Eyes: absent: Blurred Vision, Change in Vision Ears: Dizziness Nose/Mouth/Throat: absent: Nasal Congestion, Nasal Discharge, Hoarsness, Sore Throat, Throat Swelling, Tongue Swelling - Cardiovascular Cardiovascular: Lightheadedness. absent: Chest Pain, Chest Pain with Activity, Dyspnea, Dyspnea on Exertion - Gastrointestinal Gastrointestinal: Diarrhea. absent: Abdominal Pain, Constipation, Nausea, Vomiting - Genitourinary Genitourinary: absent: Flank Pain, Pyuria - Neurological Neurological: Dizziness. absent: Confusion, Focal Weakness - Endocrine Endocrine: Fatigue. absent: Palpitations Past Patient History - Infectious Disease Hx of Infectious Diseases: None - Past Medical History & Family History Past Medical History?: Yes - Past Social History Smoking Status: Former Smoker - CARDIAC Hx Hypertension: Yes - PULMONARY Hx Tuberculosis: No - NEUROLOGICAL Hx Seizures: No - HEENT Hx HEENT Problems: No - RENAL Hx Chronic Kidney Disease: No - ENDOCRINE/METABOLIC Hx Hypothyroidism: Yes - HEMATOLOGICAL/ONCOLOGICAL Hx Human Immunodeficiency Virus (HIV): No - INTEGUMENTARY Hx Dermatological Problems: No - MUSCULOSKELETAL/RHEUMATOLOGICAL Hx Musculoskeletal Disorders: No - GASTROINTESTINAL Hx Gastrointestinal Disorders: No - PSYCHIATRIC Hx Substance Use: Yes (Hx of alcohol, in recovery) - SURGICAL HISTORY Hx Surgeries: Yes Hx Open Reduction Internal Fixation: Yes (Left Knee) Hx Orthopedic Surgery: Yes (Left Knee) - ANESTHESIA Hx Anesthesia: Yes Hx Anesthesia Reactions: Yes (PSYCHOTIC EPISODE) Hx Malignant Hyperthermia: No Meds Allergies/Adverse Reactions: Allergies Allergy/AdvReac Type Severity Reaction Status Date / Time Penicillins Allergy SWELLING Verified 12/17/18 08:43 - Medications Medications: Current Medications Benztropine Mesylate (Cogentin) 2 mg PO BID [facility] Last Admin: 12/22/18 09:32 Dose: 2 mg Clonazepam (Klonopin) 0.5 mg PO TID [facility] Last Admin: 12/22/18 09:32 Dose: 0.5 mg Ibuprofen (Motrin Tab) 600 mg PO Q6 PRN PRN Reason: Moderate Pain 4-7, Fever >100 Last Admin: 12/22/18 01:48 Dose: 600 mg Levothyroxine Sodium (Synthroid) 150 mcg PO DAILY@0630 [facility] Last Admin: 12/22/18 06:22 Dose: 150 mcg Loperamide HCl (Imodium) 2 mg PO Q6 PRN PRN Reason: Loose stools Last Admin: 12/22/18 01:49 Dose: 2 mg Lorazepam (Ativan) 1 mg PO Q6 PRN PRN Reason: Agitation Last Admin: 12/21/18 01:17 Dose: 1 mg Olanzapine (Zyprexa) 5 mg PO BID [facility] Last Admin: 12/22/18 09:32 Dose: 5 mg Sertraline HCl (Zoloft) 25 mg PO DAILY [facility] Last Admin: 12/22/18 09:32 Dose: 25 mg Topiramate (Topamax) 100 mg PO BID [facility] Last Admin: 12/22/18 09:32 Dose: 100 mg Trazodone HCl (Desyrel) 100 mg PO HS PRN PRN Reason: Insomnia Last Admin: 12/19/18 21:10 Dose: 100 mg Physical Exam - Constitutional Appears: Non-toxic, No Acute Distress - Head Exam Head Exam: ATRAUMATIC, NORMAL INSPECTION - Eye Exam Eye Exam: EOMI, Normal appearance, PERRL - ENT Exam ENT Exam: Mucous Membranes Moist - Respiratory Exam Respiratory Exam: Clear to Auscultation Bilateral, NORMAL BREATHING PATTERN. absent: Decreased Breath Sounds, Prolonged Expiratory Phase, Rhonchi, Wheezes, Respiratory Distress - Cardiovascular Exam Cardiovascular Exam: REGULAR RHYTHM, +S1, +S2. absent: Tachycardia, Diastolic murmur, Systolic Murmur - GI/Abdominal Exam GI & Abdominal Exam: Normal Bowel Sounds, Soft. absent: Distended, Firm, Guarding, Tenderness - Extremities Exam Extremities exam: Positive for: normal inspection. Negative for: calf tenderness, pedal edema - Back Exam Back exam: NORMAL INSPECTION. absent: CVA tenderness (L), CVA tenderness (R) - Neurological Exam Neurological exam: Alert, Normal Gait, Oriented x3 - Psychiatric Exam Psychiatric exam: Normal Affect - Skin Skin Exam: Normal Color Results - Vital Signs Recent Vital Signs: Last Vital Signs Temp 100.8 F H 12/22/18 01:40 Pulse 114 H 12/22/18 01:40 Resp 16 12/22/18 01:40 BP 108/79 12/22/18 01:40 Pulse Ox 95 12/22/18 01:40 - Labs Result Diagrams: 12/22/18 11:52 12/22/18 11:52 Labs: Laboratory Results - last 24 hr 12/22/18 10:00 Influenza Typ A,B (EIA) Negative for flu a/b Assessment & Plan (1) Diarrhea Assessment and Plan: No elevated WBC and no abdominal pain F/u Stool Culture, Ova and parasite, leukocytes and C-diff Can also be due to side effects of Zoloft, consider switching to another anti- depressant Hold loperamide Status: Acute (2) Fever Assessment and Plan: Tmax: 100.8 Continue to monitor with vital Q4H Tylenol 650mg PO Q6H JASON x4 doses Chest x-ray: Mild to moderate venous congestion. Patchy increased markings at the lung bases. F/u BC and UC Status: Acute (3) Generalized body aches Assessment and Plan: Rapid influenza negative All plans and management discussed with Dr. Berenice Arita Status: Acute
[2018-12-22 12:07] LABS: BASO % 0.2 % (0.0-2.0); EOS % 0.5 % (0.0-4.0); HEMOGLOBIN 14.8 g/dL (12.0-18.0); LYMPH # 0.9 K/uL (1.0-4.3); MEAN CELL VOLUME 90.9 fL (80.0-94.0); MONO # 0.5 K/uL (0.0-0.8); MONO % 7.3 % (0.0-10.0); NEUT # 5.2 K/uL (1.8-7.0); NRBC % 0.1 % (0.0-2.0); RBC 4.93 Mil/uL (4.40-5.90); RED CELL DISTRIBUTION WIDTH 13.4 % (11.5-14.5); WHITE BLOOD COUNT 6.6 K/uL (4.8-10.8)
[2018-12-22 12:20] LABS: ALB/GLOB RATIO 1.6 (1.0-2.1); ALBUMIN 4.6 g/dL (3.5-5.0); ALT/SGPT 34 U/L (21-72); AST/SGOT 23 U/L (17-59); BLOOD UREA NITROGEN 20 mg/dL (9-20); CALCIUM 8.9 mg/dl (8.6-10.4); GFR NON-AFRICAN AMERICAN > 60
[2018-12-23] MEDS: Levothyroxine 150 MCG TAB PO SCH (06:10)
[2018-12-23 09:21] VITALS: TEMP 98.3; O2SAT 98
--- NOTE | 2018-12-23 09:30 | PCM.PYCHPN ---
Psychiatric Progress Note - Psychiatric Progress Note Patient seen today, length of contact: 15 min Patient Chief Complaint: My anxiety is getting worse.' Problems Identified/Issues Discussed: Patient was seen and evaluated, chart reviewed and discussed with staff. Per staff, patient is pacing back and forth in the hallways and appears very anxious and irritable. Patient still reports paranoia and very high anxiety. He reports that he is paranoia is getting worse and he reports irritability, agitation and racing thoughts. He also reports at times feelings of hopelessness and helplessness. He reports poor sleep and poor appetite. Is taking medication but denies any other side effects. He needs to stay longer for further stabilization. Supportive therapy was given Medication Change: Yes Medical Record Reviewed: Yes Mental Status Examination - Cognitive Function Orientation: Person, Place, Situation, Time Memory: Intact Attention: Poor Concentration: Poor Association: Loose Fund of Knowledge: Poor - Mood Mood: Anxious - Affect Affect: Broad - Speech Speech: Pressured - Formal Thought Process Formal Thought Process: Delusions, Paranoia, Loosening of associations, Flight of ideas - Suicidal Ideation Suicidal Ideation: No - Homicidal Ideation Homicidal Ideation: No Goal/Treatment Plan - Goal/Treatment Plan Need for Continued Stay: Severe depression anxiety, Severe functional impairment Progress Toward Problem(s) and Goals/Treatment Plan: Schizoaffective disorder bipolar type Alcohol use disorder moderate CBT Psychoeducation Supportive therapy and group therapy Trazodone for insomnia Topamax for mood swings DC Klonopin for anxiety Ativan 1 mg every 6-hour for anxiety Increase olanzapine for psychosis Increase Zoloft for depression
--- NOTE | 2018-12-23 14:05 | CP.PCM.PN ---
Subjective - Date & Time of Evaluation Date of Evaluation: 12/23/18 Time of Evaluation: 13:58 - Subjective Subjective: PGY-1 Medicine Progress Note for Dr. Krause's service S/E at bedside. States he feels different in his head after starting medications because he usually is more talkative. Denies diarrhea s/p imodium morning dose. Denies fevers, chills, chest pain, n/v, constipation or diarrhea, sob, and dysuria. Objective - Vital Signs/Intake and Output Vital Signs (last 24 hours): Temp Pulse Resp BP Pulse Ox 98.3 F 99 H 16 120/87 98 12/23/18 09:20 12/23/18 09:20 12/22/18 01:40 12/23/18 09:20 12/23/18 09:20 - Medications Medications: Current Medications Benztropine Mesylate (Cogentin) 2 mg PO BID [facility] Last Admin: 12/23/18 10:10 Dose: 2 mg Ibuprofen (Motrin Tab) 600 mg PO Q6 PRN PRN Reason: Moderate Pain 4-7, Fever >100 Last Admin: 12/22/18 01:48 Dose: 600 mg Levothyroxine Sodium (Synthroid) 150 mcg PO DAILY@0630 [facility] Last Admin: 12/23/18 06:10 Dose: 150 mcg Lorazepam (Ativan) 1 mg PO Q6 PRN PRN Reason: Agitation Last Admin: 12/21/18 01:17 Dose: 1 mg Olanzapine (Zyprexa) 10 mg PO BID [facility] Last Admin: 12/23/18 10:07 Dose: 10 mg Sertraline HCl (Zoloft) 50 mg PO DAILY [facility] Last Admin: 12/23/18 10:07 Dose: 50 mg Topiramate (Topamax) 100 mg PO BID [facility] Last Admin: 12/23/18 10:07 Dose: 100 mg Trazodone HCl (Desyrel) 100 mg PO HS PRN PRN Reason: Insomnia Last Admin: 12/23/18 01:07 Dose: 100 mg - Labs Labs: 12/22/18 11:52 12/22/18 11:52 - Constitutional Appears: Non-toxic, No Acute Distress - Head Exam Head Exam: NORMAL INSPECTION, NORMOCEPHALIC - Eye Exam Eye Exam: EOMI, Normal appearance. absent: Nystagmus, Scleral icterus - ENT Exam ENT Exam: Mucous Membranes Moist - Respiratory Exam Respiratory Exam: Clear to Ausculation Bilateral, NORMAL BREATHING PATTERN. absent: Rales, Rhonchi, Wheezes - Cardiovascular Exam Cardiovascular Exam: REGULAR RHYTHM, +S1, +S2. absent: Tachycardia - GI/Abdominal Exam GI & Abdominal Exam: Soft, Normal Bowel Sounds. absent: Distended, Firm, Guarding, Rigid, Tenderness - Extremities Exam Extremities Exam: Normal Inspection. absent: Calf Tenderness, Pedal Edema - Neurological Exam Neurological Exam: Alert, Awake, Oriented x3 - Psychiatric Exam Psychiatric exam: Normal Affect, Normal Mood - Skin Skin Exam: Dry, Intact, Normal Color Assessment and Plan - Assessment and Plan (Free Text) Assessment: Patient is a 43 yo male w/ PMH of hypothyroidism and multiple psychatric disorders admitted to psych unit for exacerbation of schizoaffective disorder. Medicine was consulted for fevers and diarrhea. Diarrhea stool studies pending; stool ova/parasites; c diff pending; stool leukocytes blood culture pending Loperamide given patient currently no episodes of diarrhea today Fevers Ibuprofen 600mg po q6h prn Hx of hypothyroidism LT4 150mcg po daily Psychiatric disorders As per psychiatry team PGY-1 Bruce Caba Medical Management discussed with Dr. Krause
[2018-12-23] MEDS ORDERED: Oxymetazoline 0.05% Nasal Spray (30 ml) NS PRN (16:31)
[2018-12-24] MEDS: Levothyroxine 150 MCG TAB PO SCH (07:24)
[2018-12-24 08:48] VITALS: BP 123/81; PULSE 109; RESP 20
--- NOTE | 2018-12-24 10:01 | PCM.PYCHDC ---
Mental Status Examination - Mental Status Examination Orientation: Person, Place, Situation, Time Memory: Intact Mood: Neutral Affect: Constricted Speech: Soft Attention: WNL Concentration: WNL Association: WNL Fund of Knowledge: WNL Formal Thought Process: No Impairment Description of patient's judgement and insight: good, fair Psychotic Thoughts and Behaviors: denies any AVH Suicidal Ideation: No Current Homicidal Ideation?: No Discharge Summary - Discharge Note Consultations:: List each consultation separately and include: 1. Reason for request. 2. Findings. 3. Follow-up Summary of Hospital Course include:: 1. Description of specific treatment plan utilized for patients during their course of treatmen. 2. Summarize the time- course for resolution of acute symptoms and/or regressed behaviors. 3. Describe issues identified and worked on during hospitalization. 4. Describe medication utilized. 5. Describe medical problems identified and treated. 6. Reassessment of suicide risk Summary of Hospital Course: Patient is a 43 yo male, who is currently unemployed and lives with his girlfriend, came to the ED with very high anxiety paranoia and disorganized behavior. [employer] L[employer] Assembler is familiar with this patient. Patient has history of multiple inpatient psychiatric hospitalizations. He was last discharged from [facility] a few months ago. Patient reports that soon after discharge from the hospital he started following up with the [facility]. However 1 week ago patient came to [facility] with very high anxiety, paranoia and disorganized behavior. [employer] L[employer] Assembler referred patient to the ED, but patient mentioned that he needs some time to make a decision. However yesterday patient came to the ED with the worsening of paranoia and anxiety. Patient reports that the medication is making her more anxious and paranoid. He reports of paranoia that people are following him. He reports racing thoughts, flight of ideas, irritability, agitation and poor concentration. He reports that he can sleep and cannot stand still. He reports at times depressed mood, feelings of hopelessness and helplessness, poor sleep and poor appetite. He reports that sometimes he also thinks about suicide. However he denies any homicidal ideation. Past medical history Hypothyroidism - Diagnosis (1) Schizoaffective disorder Current Visit: No Status: Acute - Final Diagnosis (DSM 5) Condition upon Discharge: STABLE Disposition: HOME/ ROUTINE Follow-up Treatment Plan: Schizoaffective disorder bipolar type Alcohol use disorder moderate CBT Psychoeducation Supportive therapy and group therapy Trazodone for insomnia Topamax for mood swings DC Klonopin for anxiety Ativan 1 mg every 6-hour for anxiety Increase olanzapine for psychosis Increase Zoloft for depression Prescriptions/Medication Reconciliation: Benztropine [Cogentin] 1 mg PO BID #60 tab Levothyroxine [Synthroid] 150 mcg PO DAILY #30 tab OLANZapine [Zyprexa] 10 mg PO BID #60 tab Sertraline [Zoloft] 50 mg PO DAILY #30 tab Topiramate [Topamax] 100 mg PO BID #60 tab traZODone [Desyrel] 100 mg PO HS PRN #30 tab PRN Reason: Insomnia
== END 2018-12-24 11:19 | disposition home or self-care (01) | DRG 885 ==
LOC: C.ER 08:32 → C.5E 11:54
PROVIDERS: ADMIT Psychiatry & Neurology Psychiatry; ATTEND Psychiatry & Neurology Psychiatry
PROC: GZ3ZZZZ Medication Management (ICD-10-PCS; principal; 2018-12-17)
PROC: GZHZZZZ Group Psychotherapy (ICD-10-PCS; 2018-12-17)
PROC: GZ56ZZZ Individual Psychotherapy, Supportive (ICD-10-PCS; 2018-12-17)
DX: F25.0 Schizoaffective disorder, bipolar type (principal); F10.10 Alcohol abuse, uncomplicated; E03.9 Hypothyroidism, unspecified; I10 Essential (primary) hypertension; J00 Acute nasopharyngitis [common cold]; R05 Cough; F41.9 Anxiety disorder, unspecified; G47.00 Insomnia, unspecified; Z87.891 Personal history of nicotine dependence

== ENCOUNTER 2019-03-20 13:21 | Emergency (ER) | payer MEDICARE, MEDICAID ==
[2019-03-20 13:21] VITALS: BMI 37.3
[2019-03-20 13:38] VITALS: RESP 20
--- NOTE | 2019-03-20 13:38 | C.PDOC ---
History Of Present Illness 43 y/o male with a PMHx of bipolar disorder, schizoaffective disorder, hypothyroidism presents to the ED complaining of a productive cough with yellow sputum for the last 8 days. Associated with a subjective fever, rhinorrhea, and nasal congestion. Patient also reports some chest pain when coughing. He was seen by his PMD yesterday, told he had seasonal allergies, and given Claritin and a nasal spray. Patient reports feeling sick, and is concerned due to persistence of symptoms. He does complain of occasional SOB on exertion. Denies any nausea, vomiting, diarrhea, or other associated complaints. Time Seen by Provider: 03/20/19 13:32 Chief Complaint (Nursing): Cough, Cold, Congestion History Per: Patient History/Exam Limitations: no limitations Onset/Duration Of Symptoms: Days (x 8) Current Symptoms Are (Timing): Still Present Past Medical History Reviewed: Historical Data, Nursing Documentation, Vital Signs Vital Signs: Last Vital Signs Temp 97.7 F 03/20/19 13:26 Pulse 95 H 03/20/19 13:26 Resp 20 03/20/19 13:26 BP 117/78 03/20/19 13:26 Pulse Ox 96 03/20/19 13:26 - Medical History PMH: Anxiety (pt denies), Bipolar Disorder, Depression, HTN (Pt denies), Hypothyroidism, Paranoia, Schizophrenia (schizoaffective) Denies: Diabetes, Hepatitis, HIV, Chronic Kidney Disease, Seizures - [facility] Procedures EXTRACTION OF RIGHT GREATER SAPHENOUS VEIN, OPEN APPROACH (10/15/17) GROUP PSYCHOTHERAPY (12/17/18) INDIVIDUAL PSYCHOTHERAPY, SUPPORTIVE (12/17/18) MEDICATION MANAGEMENT (12/17/18) OCCLUSION OF RIGHT GREATER SAPHENOUS VEIN, OPEN APPROACH (10/15/17) Family History: States: Unknown Family Hx - Social History Hx Tobacco Use: No 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) Hx Substance Use: No - Immunization History Hx Tetanus Toxoid Vaccination: Yes Hx Influenza Vaccination: Yes Hx Pneumococcal Vaccination: No Review Of Systems Except As Marked, All Systems Reviewed And Found Negative. Constitutional: Positive for: Fever ENT: Positive for: Nose Discharge, Nose Congestion Cardiovascular: Positive for: Chest Pain (with cough) Respiratory: Positive for: Cough, SOB with Excertion, Sputum. Negative for: Hemoptysis Gastrointestinal: Negative for: Vomiting, Abdominal Pain, Diarrhea Musculoskeletal: Negative for: Neck Pain Skin: Negative for: Rash Neurological: Negative for: Headache, Dizziness Physical Exam - Physical Exam Appears: Well, Non-toxic, No Acute Distress Skin: Warm, Dry Head: Atraumatic, Normacephalic Eye(s): bilateral: Normal Inspection, PERRL, EOMI Nose: Discharge (+ clear rhinorrhea) Oral Mucosa: Moist Throat: No Erythema, No Exudate Neck: Normal ROM, Supple Chest: Symmetrical Cardiovascular: Rhythm Regular, No Murmur Respiratory: No Accessory Muscle Use, No Rhonchi, No Wheezing, Other (Lungs clear bilaterally) Gastrointestinal/Abdominal: Soft, No Tenderness, No Distention Pulses: Left Radial: Normal, Right Radial: Normal Neurological/Psych: Oriented x3 ED Course And Treatment O2 Sat by Pulse Oximetry: 96 (on RA) Pulse Ox Interpretation: Normal - Other Rad CXR X-Ray: Read By Radiologist Interpretation: Accession No. : [id number]. Patient Name / ID : SHARIFA WITTODORE / [id number]. Exam Date : 03/20/2019 13:14:05 ( Approved ). Study Comment : Sex / Age : M / 43Y. Creator : Gabbie Hamilton MD. Dictator : Gabbie Hamitlon MD. Automation Consultant : [facility] : Gabbie Hamilton MD. Approver2 : Report Date : 03/20/2019 14:28:04. My Comment : . HISTORY: r/o Pneumonia. COMPARISON: Chest x-ray performed 12/22/18. TECHNIQUE: Chest PA and lateral, 2 views. FINDINGS: Examination limited by habitus. LUNGS: Mild venous congestion. No focal consolidation. Please note that chest x-ray has limited sensitivity for the detection of pulmonary masses. PLEURA: No significant pleural effusion identified. No definite pneumothorax . CARDIOVASCULAR: The cardiomediastinal silhouette appears within normal limits of size. No atherosclerotic calcification present. OSSEOUS STRUCTURES: No acute osseous abnormality identified. VISUALIZED UPPER ABDOMEN: Unremarkable. OTHER FINDINGS: None. IMPRESSION: Mild venous congestion. No focal consolidation. Medical Decision Making Medical Decision Making: Impression: URI vs seasonal allergies, r/o pneumonia Plan: - 30 mg PO Sudafed - Chest x-ray CXR shows some venous congestion. No infiltrates. Patient advised to continue medications at home, will provide Rx for Motrin. Disposition Counseled Patient/Family Regarding: Studies Performed, Diagnosis, Need For Followup - Disposition Referrals: [facility] [Outside] [facility] [Outside] [facility] [Outside] Disposition: HOME/ ROUTINE Disposition Time: 14:37 Condition: STABLE Additional Instructions: Please continue with the claritin, cough medication and take motrin as directed for pain. Prescriptions: Ibuprofen [Motrin] 600 mg PO Q6 #20 tab Instructions: Upper Respiratory Infection (ED) Forms: [employer] (Slovak) - POA Present On Arrival: None - Clinical Impression Clinical Impression: Upper respiratory infection - Scribe Statement The provider has reviewed the documentation as recorded by the Yogi Hinton Provider Attestation: All medical record entries made by the Ashwinibgeorge were at my direction and personally dictated by me. I have reviewed the chart and agree that the record accurately reflects my personal performance of the history, physical exam, medical decision making, and the department course for this patient. I have also personally directed, reviewed, and agree with the discharge instructions and disposition.
--- NOTE | 2019-03-20 14:31 | RAD ---
HISTORY: r/o Pneumonia COMPARISON: Chest x-ray performed 12/22/18 TECHNIQUE: Chest PA and lateral, 2 views FINDINGS: Examination limited by habitus. LUNGS: Mild venous congestion. No focal consolidation. Please note that chest x-ray has limited sensitivity for the detection of pulmonary masses. PLEURA: No significant pleural effusion identified. No definite pneumothorax . CARDIOVASCULAR: The cardiomediastinal silhouette appears within normal limits of size. No atherosclerotic calcification present. OSSEOUS STRUCTURES: No acute osseous abnormality identified. VISUALIZED UPPER ABDOMEN: Unremarkable. OTHER FINDINGS: None. IMPRESSION: Mild venous congestion. No focal consolidation.
[2019-03-20 14:43] VITALS: BP 112/72; PULSE 68; TEMP 98.9
[2019-03-20 14:57] VITALS: O2SAT 96
== END 2019-03-20 14:53 | disposition home or self-care (01) ==
LOC: C.ER 13:21
DX: J06.9 Acute upper respiratory infection, unspecified (principal); I10 Essential (primary) hypertension; E03.9 Hypothyroidism, unspecified; F25.9 Schizoaffective disorder, unspecified; F31.9 Bipolar disorder, unspecified

== ENCOUNTER 2019-04-24 09:52 | Emergency (ER) | payer MEDICARE, MEDICAID ==
[2019-04-24 09:52] VITALS: BMI 37.3
[2019-04-24 10:01] VITALS: O2SAT 95
--- NOTE | 2019-04-24 11:23 | C.PDOC ---
History Of Present Illness Patient is a 43 year old male, with a PMHx of paranoid schizophrenia, who presents to the ED requesting medication refill of Abilify and Trazodone. Patient states that he spoke to his counselor at [facility] who told him his psychiatrist is on vacation and to come to the ED. Patient denies any SI/HI or other medical complaints. Time Seen by Provider: 04/24/19 10:12 Chief Complaint (Nursing): Med Refill History Per: Patient History/Exam Limitations: no limitations Recent travel outside of the [place]: No Additional History Per: Patient Past Medical History Reviewed: Historical Data, Nursing Documentation, Vital Signs Vital Signs: Last Vital Signs Temp 98.6 F 04/24/19 09:59 Pulse 81 04/24/19 09:59 Resp 20 04/24/19 09:59 BP 118/79 04/24/19 09:59 Pulse Ox 95 04/24/19 09:59 Primary Care Provider: Non [facility] Provider, - Medical History PMH: Anxiety (pt denies), Bipolar Disorder, Depression, HTN (Pt denies), Hypothyroidism, Paranoia, Schizophrenia (schizoaffective) Denies: Diabetes, Hepatitis, HIV, Chronic Kidney Disease, Seizures Surgical History: No Surg Hx - [facility] Procedures EXTRACTION OF RIGHT GREATER SAPHENOUS VEIN, OPEN APPROACH (10/15/17) GROUP PSYCHOTHERAPY (12/17/18) INDIVIDUAL PSYCHOTHERAPY, SUPPORTIVE (12/17/18) MEDICATION MANAGEMENT (12/17/18) OCCLUSION OF RIGHT GREATER SAPHENOUS VEIN, OPEN APPROACH (10/15/17) Family History: States: Unknown Family Hx - Social History Hx Tobacco Use: No 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) Hx Substance Use: No - Immunization History Hx Tetanus Toxoid Vaccination: Yes Hx Influenza Vaccination: Yes Hx Pneumococcal Vaccination: No Review Of Systems Constitutional: Negative for: Fever, Chills Cardiovascular: Negative for: Chest Pain Respiratory: Negative for: Shortness of Breath Gastrointestinal: Negative for: Nausea, Vomiting Neurological: Negative for: Headache Psych: Negative for: Suicidal ideation, Other (HI ) Physical Exam - Physical Exam Appears: Non-toxic, No Acute Distress Head: Atraumatic, Normacephalic Eye(s): bilateral: Normal Inspection Cardiovascular: Rhythm Regular, No Murmur Respiratory: Normal Breath Sounds, No Rales, No Rhonchi, No Wheezing Gastrointestinal/Abdominal: Soft, No Tenderness, Other (obese) Neurological/Psych: Oriented x3, Normal Cranial Nerves, Normal Motor, Normal Sensation, Normal Reflexes ED Course And Treatment O2 Sat by Pulse Oximetry: 95 (on RA ) Pulse Ox Interpretation: Normal Medical Decision Making Medical Decision Making: Crisis called [facility] who said patient was given his medication refill on 04/22/19 and said they would see him today to figure out what the issue is. Disposition - Disposition Referrals: [facility] [Outside] Disposition: HOME/ ROUTINE Disposition Time: 11:22 Condition: STABLE Instructions: Schizophrenia (DC) Forms: [facility] (Citizen Of [place]), General Discharge Instructions - POA Present On Arrival: None - Clinical Impression Clinical Impression: Paranoid schizophrenia - Scribe Statement The provider has reviewed the documentation as recorded by the Ashwinibgeorge Flores All medical record entries made by the Scribe were at my direction and personally dictated by me. I have reviewed the chart and agree that the record accurately reflects my personal performance of the history, physical exam, medical decision making, and the department course for this patient. I have also personally directed, reviewed, and agree with the discharge instructions and disposition.
[2019-04-24 11:24] VITALS: BP 123/78; PULSE 75; RESP 18; TEMP 97.8
== END 2019-04-24 11:26 | disposition home or self-care (01) ==
LOC: C.ER 09:52
DX: F20.0 Paranoid schizophrenia (principal)